=== PATIENT | male | born 1940 | race Caucasian/White ===

== ENCOUNTER 2017-12-04 11:08 | Outpatient (CLI) | payer OTHER, SELFPAY ==
[2017-12-04 13:38] LABS: Hemoglobin A1C 6.4 % (4.5-6.2)
== END 2017-12-04 11:28 ==
PROVIDERS: PCP Family Medicine; Visit Provider Family Medicine
DX: E11.9 Type 2 diabetes mellitus without complications (principal); I10 Essential (primary) hypertension
CPT/HCPCS: 36415; 83036

== ENCOUNTER 2018-06-17 02:03 | Outpatient (CLI) | payer OTHER, SELFPAY ==
[2018-06-17 11:22] LABS: Anion Gap 7.8 mmol/L (3-11); BUN 17 mg/dL (7-18); CO2 30.2 mmol/L (21.0-32.0); CREATININE 1.05 mg/dL (0.70-1.30); Calcium 9.1 mg/dL (8.5-10.1); Chloride 103 mmol/L (98-107); Cholesterol 133 mg/dL (50-200); Glucose 161 mg/dL (70-100); HDL Cholesterol 33 mg/dL (40-60); LDL CHOLESTEROL 79 mg/dL (<100); Potassium 4.1 mmol/L (3.5-5.1); Sodium 141 mmol/L (136-145); Triglyceride 94 mg/dL (30-150)
[2018-06-17 11:29] LABS: Hemoglobin A1C 6.5 % (4.5-6.2)
== END 2018-06-17 02:23 ==
PROVIDERS: PCP Family Medicine; Visit Provider Family Medicine
DX: E78.5 Hyperlipidemia, unspecified (principal); E11.9 Type 2 diabetes mellitus without complications; I10 Essential (primary) hypertension
CPT/HCPCS: 36415; 80048; 80061; 83721; 83036

== ENCOUNTER 2019-12-18 09:37 | Outpatient (CLI) | payer OTHER, SELFPAY ==
[2019-12-18 12:32] LABS: Hemoglobin A1C 6.6 % (<5.7)
[2019-12-18 12:38] LABS: ALT 27 U/L (16-63); AST 15 U/L (15-37); Albumin 4.2 g/dL (3.4-5.0); Alkaline Phosphatase 100 U/L (46-116); Anion Gap 10.3 mmol/L (3-11); BUN 22 mg/dL (7-18); Bilirubin, Total 0.7 mg/dL (0.2-1.0); CO2 28.7 mmol/L (21.0-32.0); CREATININE 1.13 mg/dL (0.70-1.30); Calcium 8.9 mg/dL (8.5-10.1); Chloride 103 mmol/L (98-107); Glucose 130 mg/dL (74-106); Potassium 4.2 mmol/L (3.5-5.1); Sodium 142 mmol/L (136-145)
== END 2019-12-18 09:57 ==
DX: E11.9 Type 2 diabetes mellitus without complications (principal); I10 Essential (primary) hypertension
CPT/HCPCS: 36415; 80053; 83036

== ENCOUNTER 2020-04-27 13:32 | Outpatient (REF) | payer OTHER, SELFPAY | END 2020-04-27 13:33 | disposition home or self-care (01) | LOC: NCHCN 13:32 | PROVIDERS: Visit Provider Nurse Practitioner Family | DX: J02.9 Acute pharyngitis, unspecified (principal) | CPT/HCPCS: 87070 ==

== ENCOUNTER 2021-01-04 16:08 | Outpatient (REF) | payer MEDICARE, SELFPAY ==
[2021-01-04 20:52] LABS: COMMENT (LAB VIEW ONLY) 80.79 mg/dL; Microalb ug/mg Crea 26.6 ug/mg Cr
[2021-01-04 21:03] LABS: ALT 29 U/L (16-63); AST 15 U/L (15-37); Albumin 3.9 g/dL (3.4-5.0); Alkaline Phosphatase 114 U/L (46-116); Anion Gap 6.7 mmol/L (3-11); BUN 18 mg/dL (7-18); Bilirubin, Total 0.5 mg/dL (0.2-1.0); CO2 31.3 mmol/L (21.0-32.0); Calcium 8.7 mg/dL (8.5-10.1); Calculated LDL 91 mg/dL (<100); Chloride 104 mmol/L (98-107); Cholesterol 142 mg/dL (<200); Glucose 113 mg/dL (74-106); HDL Cholesterol 33 mg/dL (40-60); Sodium 142 mmol/L (136-145); TSH (W/Ref FT4) 1.58 uIU/mL (0.36-3.74); Total Protein 6.7 g/dL (6.4-8.2); Triglyceride 94 mg/dL (<150)
== END 2021-01-04 16:09 | disposition home or self-care (01) ==
LOC: LBN 16:08
PROVIDERS: Visit Provider Family Medicine
DX: E11.9 Type 2 diabetes mellitus without complications (principal); I10 Essential (primary) hypertension; E78.5 Hyperlipidemia, unspecified
CPT/HCPCS: 80053; 80061; 82043; 82570; 84443

== ENCOUNTER 2021-02-28 10:29 | Outpatient (CLI) | payer MEDICARE, SELFPAY ==
--- NOTE | 2021-02-28 10:15 | DI.RAD_ITS ---
Exam(s) XR SHOULDER RT COMPLETE 2+V EXAM: XR SHOULDER RT COMPLETE 2+V CLINICAL HISTORY: right shoulder pain, M25.511. TECHNIQUE: 2D digital imaging was performed. COMPARISON: No exams were available for comparison FINDINGS: BONES: No acute fracture is present. No bony destructive lesion is seen. JOINTS: No dislocation present. Prominent spurring is seen at the AC joint. Spurring is also noted at the tip of the acromion. Spurring at the margin of the glenoid. SOFT TISSUE: 2 tiny calcifications near the greater tuberosity could indicate mild calcific tendinosi s. Sternal wires and pacemaker leads noted. IMPRESSION: Degenerative changes AC joint and glenohumeral joint. Calcific tendinosis. DATA REPOSITORY: RADIATION DOSE DELIVERED:
== END 2021-02-28 10:49 ==
PROVIDERS: Visit Provider Physician Assistant
DX: M25.511 Pain in right shoulder (principal); M75.31 Calcific tendinitis of right shoulder; M19.011 Primary osteoarthritis, right shoulder
CPT/HCPCS: 73030

== ENCOUNTER 2021-10-14 01:42 | Outpatient (CLI) | payer MEDICARE, SELFPAY ==
[2021-10-14 12:38] LABS: Hemoglobin A1C 7.1 % (<5.7)
[2021-10-14 12:45] LABS: TSH (W/Ref FT4) 1.61 uIU/mL (0.36-3.74)
== END 2021-10-14 01:43 | disposition home or self-care (01) ==
LOC: LOS 01:42
DX: E11.9 Type 2 diabetes mellitus without complications (principal); R63.4 Abnormal weight loss
CPT/HCPCS: 36415; 83036; 84443

== ENCOUNTER 2022-01-06 01:46 | Outpatient (CLI) | payer MEDICARE, SELFPAY ==
[2022-01-06 11:44] LABS: Anion Gap 6.6 mmol/L (3-11); BUN 22 mg/dL (7-18); CO2 30.4 mmol/L (21.0-32.0); CREATININE 1.2 mg/dL (0.70-1.30); Calcium 9.5 mg/dL (8.5-10.1); Chloride 101 mmol/L (98-107); Estimated GFR 61.52 (mL/min/1.73m2); Glucose 180 mg/dL (74-106); Potassium 3.9 mmol/L (3.5-5.1); Sodium 138 mmol/L (136-145)
[2022-01-06 14:24] LABS: COMMENT (LAB VIEW ONLY) 128.66 mg/dL; Microalb ug/mg Crea 29.9 ug/mg Cr
[2022-01-09 09:52] LABS: Lyme Ab w Rflx to Lyme Confirm Negative (Negative)
[2022-01-10 18:26] LABS: Anaplasma phagocytophilum Negative (Negative); B. miyamotoi PCR Negative (Negative); Babesia divergens/MO-1 Negative (Negative); Babesia duncani Negative (Negative); Babesia microti Negative (Negative); Ehrlichia chaffeensis Negative (Negative); Ehrlichia ewingii/canis Negative (Negative); Ehrlichia muris eauclairensis Negative (Negative)
== END 2022-01-06 01:47 | disposition home or self-care (01) ==
LOC: LBO 01:46
PROVIDERS: Family Medicine; Nurse Practitioner Family; PCP Nurse Practitioner Family; Visit Provider Nurse Practitioner Family
DX: E11.9 Type 2 diabetes mellitus without complications (principal); W57.XXXA Bitten or stung by nonvenomous insect and other nonvenomous arthropods, initial encounter
CPT/HCPCS: 36415; 80048; 87798; 82043; 82570; 86618

== ENCOUNTER 2022-02-10 16:16 | Outpatient (REF) | payer MEDICARE, SELFPAY | END 2022-02-10 16:17 | disposition home or self-care (01) | LOC: LBN 16:16 | PROVIDERS: PCP Nurse Practitioner Family; Visit Provider Nurse Practitioner Family | DX: R30.0 Dysuria (principal) | CPT/HCPCS: 87086 ==

== ENCOUNTER → 2022-03-06 14:32 | Outpatient (BNVA) | payer MEDICARE, SELFPAY | PROVIDERS: PCP Nurse Practitioner Family; Referring Provider Nurse Practitioner Family; Visit Provider Student in an Organized Health Care Education/Training Program | DX: M79.5 Residual foreign body in soft tissue (principal) | CPT/HCPCS: 10120; 99203 ==

== ENCOUNTER 2022-05-08 12:04 | Outpatient (CLI) | payer MEDICARE, SELFPAY ==
--- NOTE | 2022-05-08 12:00 | DI.RAD_ITS ---
Exam(s) XR HIP LT COMPLETE AP PELVIS EXAM: XR HIP LT COMPLETE AP PELVIS INDICATION: increased pain M54.5 BACK PAIN M48.061 SPINAL STENOSIS M25.552 PAIN LT HIP. TECHNIQUE: 2D digital imaging was performed. Two views. FINDINGS: The hip joint spaces are well maintained. There is minimal bilateral hip acetabular spurring. Mini mal degenerative changes present at the SI joints. Pubic symphysis unremarkable. IMPRESSION: Mild degenerative changes. DATA REPOSITORY: RADIATION DOSE DELIVERED:
--- NOTE | 2022-05-08 12:00 | DI.RAD_ITS ---
Exam(s) XR LUMBAR SPINE COMPLETE EXAM: XR LUMBAR SPINE COMPLETE CLINICAL HISTORY: increased pain M25.552 PAIN LT HIP M54.5 LOW BACK PAIN. TECHNIQUE: 2D digital imaging was performed. Five views. COMPARISON: No exams were available for comparison FINDINGS: BONES: No fracture or destructive lesion. Vertebral body heights are maintained. Facet degenerative changes greater L4-5 and L5-S1. No spondylolysis . DISKS: Mild narrowing of the L 3 4 disc. Moderate narrowing of the L5-S1 disc. ALIGNMENT: Lumbar sp inal alignment is within normal limits. SOFT TISSUE: The aorta calcified. No aneurysm visible. Large quantity of stool throughout the colon . No small bowel dilatation. IMPRESSION: Degenerative changes greatest L3-4 and L5-S1. DATA REPOSITORY: RADIATION DOSE DELIVERED:
== END 2022-05-08 12:24 ==
LOC: DI 12:07
PROVIDERS: PCP Nurse Practitioner Family; Visit Provider Nurse Practitioner Family
DX: M25.552 Pain in left hip (principal); M54.59 Other low back pain; M48.061 Spinal stenosis, lumbar region without neurogenic claudication; M25.852 Other specified joint disorders, left hip; M51.37 Other intervertebral disc degeneration, lumbosacral region; M47.817 Spondylosis without myelopathy or radiculopathy, lumbosacral region
CPT/HCPCS: 72110; 73502

== ENCOUNTER → 2022-06-02 09:18 | Outpatient (BNVA) | payer MEDICARE, SELFPAY | PROVIDERS: PCP Nurse Practitioner Family; Referring Provider Nurse Practitioner Family; Visit Provider Physician Assistant | DX: M70.62 Trochanteric bursitis, left hip (principal) | CPT/HCPCS: 20610; J1040 ==

== ENCOUNTER → 2022-08-10 11:11 | Outpatient (BNVA) | payer MEDICARE, SELFPAY | PROVIDERS: PCP Nurse Practitioner Family; Referring Provider Nurse Practitioner Family; Visit Provider Student in an Organized Health Care Education/Training Program | DX: M70.62 Trochanteric bursitis, left hip (principal) | CPT/HCPCS: 99213 ==

== ENCOUNTER → 2022-12-15 09:51 | Outpatient (CLI) | payer MEDICARE, SELFPAY ==
--- NOTE | 2022-12-15 09:45 | DI.RAD_ITS ---
Exam(s) XR LUMBAR SPINE COMPLETE EXAM: XR LUMBAR SPINE COMPLETE CLINICAL HISTORY: left hip pain, M25.552. TECHNIQUE: 2D digital imaging was performed. Five views. COMPARISON: CR XR LUMBAR SPINE COMPLETE from 05/08/2022 FINDINGS: BONES: No fracture or destructive lesion. Vertebral body heights are maintained. Small endplate oste ophytes throughout. Facet hypertrophy identified greater in lower lumbar levels.. DISKS: Stable mild narrowing of the L3-4 disc space. Stable narrowing of the L5-S1 disc space. ALIGNMENT: Lumbar spinal alignment is within normal limits. SOFT TISSUE: Aorta is calcified but normal in diameter. IMPRESSION: Stable degenerative changes of the lumbar spine. DATA REPOSITORY: RADIATION DOSE DELIVERED:
--- NOTE | 2022-12-15 09:45 | DI.RAD_ITS ---
Exam(s) XR HIP LT COMPLETE AP PELVIS EXAM: XR HIP LT COMPLETE AP PELVIS CLINICAL HISTORY: left hip pain, M25.552. TECHNIQUE: 2D digital imaging was performed. Two views. COMPARISON: CR XR HIP LT COMPLETE AP PELVIS from 05/08/2022 FINDINGS: BONES: No acute fracture is present. No bony destructive lesion is seen. JOINTS: No dislocation present. Hip joint spaces are maintained. Minimal acetabular spurring. Stab le from prior. Minimal degenerative changes at the SI joints. SOFT TISSUE: Normal. IMPRESSION: Minimal degenerative changes. DATA REPOSITORY: RADIATION DOSE DELIVERED:
== END ==
PROVIDERS: PCP Nurse Practitioner Family; Visit Provider Physician Assistant
DX: M25.552 Pain in left hip (principal)
CPT/HCPCS: 72110; 73502

== ENCOUNTER → 2022-12-21 13:49 | Outpatient (BNVA) | payer MEDICARE, SELFPAY | PROVIDERS: PCP Nurse Practitioner Family; Referring Provider Nurse Practitioner Family | DX: M70.62 Trochanteric bursitis, left hip (principal) | CPT/HCPCS: 99213 ==

== ENCOUNTER 2022-12-22 11:17 | Day surgery (SDC) | payer MEDICARE, SELFPAY ==
--- NOTE | 2022-12-22 06:48 | HPE_ITS ---
Assessment and Plan Assessment and plan (1) Posterior subcapsular age-related cataract, right eye: Status: Acute Assessment and plan: Assessment: Visually significant cataract of the right thigh. Plan: Cataract extraction with lens implantation of the right eye. (2) Nuclear age-related cataract, right eye: Status: Acute Assessment and plan: Assessment: Visually significant cataract of the right thigh. Plan: Cataract extraction with lens implantation of the right eye. (3) Primary open angle glaucoma (POAG) of right eye, mild stage: Status: Acute Assessment and plan: Assessment: Primary open-angle glaucoma of the right eye, mild stage, controlled on 1 medication. Plan: Minimally invasive glaucoma surgery, right eye, at the time of cataract surgery. History of Present Illness History of Present Illness Chief Complaint: Progressive decreased vision, both eyes Narrative: The patient is an 82-year-old male with history of primary open-angle glaucoma in both eyes, mild stage, controlled on 1 medication. He notes progressive decreased vision at both distance and near. He has difficulty reading fine print and significant glare with headlights at night. On examination he was noted to have dense bilateral cataracts. The option of cataract surgery was offered to the patient and he wished to proceed. In addition, he desired to proceed with minimally invasive glaucoma surgery at the time of cataract surgery and attempt to reduce his dependence on topical medication and improved intrao cular pressure control. Review of Systems All systems reviewed & are unremarkable except as noted in HPI and below PFSH All Active Problems Primary open angle glaucoma (POAG) of right eye, mild stage (Acute) Posterior subcapsular age-related cataract, right eye (Acute) Nuclear age-related cataract, right eye (Acute) Trochanteric bursitis, left hip (Acute) DEPO MEDROL 06/02/2022 Pacemaker (Acute) Left hip pain (Acute) Foreign body (FB) in soft tissue (Acute) Sliver (Acute) base of right thumb - pressure treated wood, been there a couple of weeks, very tender Weakness (Acute) Post-nasal drip (Acute) Encounter for annual physical exam (Acute) Concern about skin disease without diagnosis (Acute) Depressive disorder (Acute 01/11/03) Diverticulosis of colon without diverticulitis (Acute) Family history of diabetes mellitus (Acute) History of esophagogastroduodenoscopy (Acute) Peptic reflux disease (Acute) Polyp of colon (Acute) Problem with sexual function (Acute) Status post rotator cuff repair (Acute) Spinal stenosis of lumbar region at multiple levels (Acute 08/18/14) Sensory hearing loss, bilateral (Acute 08/18/13) Osteoarthritis (Acute) right hip Low back pain (Acute) Impotence of organic origin (Acute) Hyperlipidemia (Acute) Hearing loss (Acute) Gastroesophageal reflux disease (Acute 10/31/12) Essential hypertension (Acute 10/30/12) Disorder of esophagus (Acute) presbyesophagus Diabetes mellitus (Acute 04/30/15) Coronary artery disease involving [place] coronary artery of [place] heart without angina pectoris (Acute 03/17/16) 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 Ulcer in throat Rotator Cuff Repair (~01/2001) left EGD - MAC 02/09/14 Family History Mother , 91 Diabetes Essential hypertension Heart disease Hyperlipidemia Stroke Father , 82 Parkinson disease Heart disease Sister Hyperlipidemia Brother , 54 Heart disease Brother , 70 No problems noted. Brother Diabetes Heart disease Brother Diabetes Heart disease Sister Diabetes Heart disease Maternal Grandfather No problems noted. Paternal Grandfather No problems noted. Maternal Grandmother No problems noted. Paternal Grandmother No problems noted. Social History Smoking/Tobacco Use Status: Former Tobacco Use Quit Date: 02/12/1967 Tobacco: How many years used: 5 Second Hand Exposure: Yes Smoking risk assessment performed?: Yes Alcohol Intake: never Drug use: Never Substance use type: does not use Counseling given: No Counseling provided: none Caregiver/Support person: No Household members: spouse Housing: house Communication Needs: Hard of Hearing and Corrective Lenses Do you need help understanding health information?: Rarely Pets and animals: Yes Pets and animals: horse(s) Sexually active: No Do you think of yourself as: straight/heterosexual Current gender identity: male What is your relationship status?: How often do you talk on the phone with friends or family?: three or more times per week How often do you get together with friends or relatives?: three or more times per week How often do you attend episcopalian or presybeterian services?: 1-3 times per year Do you belong to any clubs or organized social groups?: yes Panel score (0-1 are the most socially isolated patients): 3 What type of physical activity do you participate in: none Frequency: does not exercise Rosalba/Confucianist: Moravian Special rosalba needs: No Seatbelt use: always Helmet use: Yes Helmet use: sometimes Drive intox or ride w/intox local company hazmat driver: No Additional Social history: unable to assess Issue Allergies and Home Medications Allergies Allergy/AdvReac Type Severity Reaction Status Date / Time No Known Allergies Allergy Verified 12/22/22 11:40 Home Medications Medication Instructions Recorded Confirmed Type Aspirin 1 tab PO DAILY 05/13/12 12/22/22 History multivitamin with minerals (One 1 tab PO DAILY 05/13/12 12/22/22 History Daily Complete tablet) acyclovir 400 mg tablet 400 mg PO Q4H PRN cold sores #5 09/18/19 12/22/22 Rx tabs blood-glucose meter (Contour Next #1 ea 01/12/22 12/21/22 Rx EZ Meter kit) lancets (Accu-Chek Softclix #200 ea 01/13/22 12/21/22 Rx Lancets) blood sugar diagnostic (Accu-Chek 05/08/22 12/21/22 History SmartView Test Strips) sertraline 50 mg tablet See Rx Instructions .Route 06/30/22 12/22/22 Rx .COMPLEX #90 tabs omeprazole 40 mg capsule,delayed See Rx Instructions .Route 08/09/22 12/22/22 Rx release .COMPLEX #90 caps atorvastatin 40 mg tablet See Rx Instructions .Route 08/16/22 12/22/22 Rx .COMPLEX #90 tabs hydrochlorothiazide 25 mg tablet See Rx Instructions .Route 08/23/22 12/22/22 Rx .COMPLEX #90 tabs metoprolol succinate 25 mg 25 mg PO DAILY #90 tabs 09/06/22 12/22/22 Rx tablet,extended release 24 hr metformin 500 mg tablet,extended 1,000 mg (2 x 500 mg) PO DAILY 09/12/22 12/22/22 Rx release 24hr #180 tabs famotidine 20 mg tablet See Rx Instructions .Route 11/03/22 12/22/22 Rx .COMPLEX #90 tabs Exam Eyes Other: Most recent ocular examination is significant for corrected visual acuity of 20/30 right eye, 20/40 left eye. Extraocular motility is normal. Intraocular pressure is 20 in each eye. Slit-lamp examination is significant for dense brunescent bilateral nuclear cataracts with mild posterior subcapsular cataract. Disc cupping is 0.6 OU with normal vessels, macula, peripheral retina and vitreous. There is a choroidal nevus present in the right thigh. Resp Auscultation: clear to auscultation bilaterally Cardio Rate: regular rate Rhythm: regular rhythm
[2022-12-22 11:23] VITALS: BP 147/96; PULSE 63; RESP 16; TEMP 36.2; O2SAT 98
[2022-12-22] MEDS: Tropicam./Phenyleph. (1/2.5%) 5 ML BTL OD ×3 (11:38→11:49)
--- NOTE | 2022-12-22 11:54 | ANES.PREOP_ITS ---
General Info Date of Service Date Performed: 12/22/22 Height: 5 ft 9 in Weight: 67 kg Body Mass Index (BMI): 21.8 Surgical Procedure: Operation Date: 12/22/22 14:40 Proposed Procedure Side Surgeon p Cataract Extraction with IOL Implant w/Glaucoma Stent Right Jeffrey Monge MD Meds Allergies and Home Medications Allergies Allergy/AdvReac Type Severity Reaction Status Date / Time No Known Allergies Allergy Verified 12/22/22 11:40 Home Medication Medication Instructions Recorded Aspirin 1 tab PO DAILY 05/13/12 multivitamin with minerals (One 1 tab PO DAILY 05/13/12 Daily Complete tablet) acyclovir 400 mg tablet 400 mg PO Q4H PRN cold sores #5 09/18/19 tabs blood-glucose meter (Contour Next #1 ea 01/12/22 EZ Meter kit) lancets (Accu-Chek Softclix #200 ea 01/13/22 Lancets) blood sugar diagnostic (Accu-Chek 05/08/22 SmartView Test Strips) sertraline 50 mg tablet See Rx Instructions .Route 06/30/22 .COMPLEX #90 tabs omeprazole 40 mg capsule,delayed See Rx Instructions .Route 08/09/22 release .COMPLEX #90 caps atorvastatin 40 mg tablet See Rx Instructions .Route 08/16/22 .COMPLEX #90 tabs hydrochlorothiazide 25 mg tablet See Rx Instructions .Route 08/23/22 .COMPLEX #90 tabs metoprolol succinate 25 mg 25 mg PO DAILY #90 tabs 09/06/22 tablet,extended release 24 hr metformin 500 mg tablet,extended 1,000 mg (2 x 500 mg) PO DAILY 09/12/22 release 24hr #180 tabs famotidine 20 mg tablet See Rx Instructions .Route 11/03/22 .COMPLEX #90 tabs Current Visit Medications: Current Medications Generic Name Dose Route Start Last Admin Trade Name Freq PRN Reason Stop Dose Admin Acetaminophen 1,000 mg 12/22/22 06:00 Acetaminophen 500 Mg Tab PO 01/21/23 05:59 Q4H PRN PRN Balanced Salt Solution 500 ml 12/22/22 06:00 Balanced Salt Soln.-Plus 500 Ml Bag OP 01/21/23 05:59 DIRECTED DANIA Miscellaneous Medication 0 ml 12/22/22 06:00 Prednisolone 1%, Moxifloxacin 0.5%, Nepafenac 0.1% 5ml Btl OD 01/21/23 05:59 DIRECTED DANIA Miscellaneous Medication 0 ml 12/22/22 06:00 12/22/22 11:49 Tropicam./Phenyleph. (1/2.5%) 5 Ml Btl OD 01/21/23 05:59 1 drp DIRECTED DANIA Administration Tetracaine HCl 0 ml 12/22/22 06:00 Tetracaine 0.5% 4 Ml Btl OD 01/21/23 05:59 DIRECTED DANIA PFSH Active Problems Active Problems: Problem Status Onset Code Primary open angle glaucoma (POAG) of right eye, mild stage H40.1111 Posterior subcapsular age-related cataract, right eye H25.041 Nuclear age-related cataract, right eye H25.11 Trochanteric bursitis, left hip M70.62 Pacemaker Z95.0 Left hip pain M25.552 Foreign body (FB) in soft tissue M79.5 Sliver T14.8XXA Weakness R53.1 Post-nasal drip R09.82 Encounter for annual physical exam Z00.00 Concern about skin disease without diagnosis Z71.1 Depressive disorder 01/11/03 F32.9 Diverticulosis of colon without diverticulitis K57.30 Family history of diabetes mellitus Z83.3 History of esophagogastroduodenoscopy Z98.890 Peptic reflux disease K21.9 Polyp of colon K63.5 Problem with sexual function F52.9 Status post rotator cuff repair Z98.890 Spinal stenosis of lumbar region at multiple levels 08/18/14 M48.061 Sensory hearing loss, bilateral 08/18/13 H90.3 Osteoarthritis M19.90 Low back pain M54.5 Impotence of organic origin N52.9 Hyperlipidemia E78.5 Hearing loss H91.90 Gastroesophageal reflux disease 10/31/12 K21.9 Essential hypertension 10/30/12 I10 Disorder of esophagus K22.9 Diabetes mellitus 04/30/15 E11.9 Coronary artery disease involving [place] coronary artery of [place] heart without angina pectoris 03/17/16 I25.10 Medical History Medical History Bradycardia (10/24/16) Rate in 30's at night Acute diffuse otitis externa of right ear (12/04/16) Hypertension GERD (gastroesophageal reflux disease) Osteoarthritis Hyperlipidemia Hearing loss Lumbago History of Helicobacter pylori infection Surgical History Surgical History throat surgery ? Ulcer in throat Rotator Cuff Repair (~01/2001) left EGD - MAC 02/09/14 Tobacco Smoking/Tobacco Use Status: Former Tobacco Use Passive smoking exposure: Yes Second hand exposure: Yes Alcohol Alcohol Intake: never Substance Use Substance use: Never Substance use type: does not use Counseling provided: none Vital Signs and Lab Results Vital Signs Most Recent Vital Signs in EMR: Most Recent Vital Signs Temp Pulse Resp BP Pulse Ox 36.2 C L 63 16 147/96 H 98 12/22/22 11:23 12/22/22 11:23 12/22/22 11:23 12/22/22 11:23 12/22/22 11:23 Point of Care Results Point of Care Results: Finger Stick Blood Glucose 189 12/22/22 11:39 Lab Results Blood Type / Crossmatch: No Data to Display Complete Blood Count: No Data to Display Complete Metabolic Panel: No Data to Display Liver Function Panel: No Data to Display Coagulation Panel: No Data to Display Cardiac Panel: No Data to Display Arterial Blood Gas: No Data to Display Venous Blood Gas: No Data to Display Pancreas Panel: No Data to Display Thyroid Panel: No Data to Display Infectious Disease: No Data to Display Blood Cultures: No Data to Display Toxicology Panel: No Data to Display Anesthesia Assessment and Plan Anesthesia History Personal History: No History of Anesthesia Complications Family History: No Family History of Anesthesia Complications Exercise Tolerance Exercise Tolerance: Metabolic Equivalents>4 Pertinent Negatives Pertinent Negatives: No Symptoms of GERD Cardiac & Pulmonary Exam Cardiac Exam: Normal S1/S2 Heart Sounds Pulmonary Exam: Clear Bilateral Breath Sounds Implantable Cardiac Device Does patient have a Pacemaker or an ICD?: Yes Device Beeswax Bleacher:: 79 Group Reason for Placement:: Bradycardia Date of Last Device Interrogation:: 12/04/22 Airway Exam Known Difficult Airway: No Mallampati Class: 2 Mouth Opening: Normal (> 3cm) Thyromental Distance: Greater than 3 cm Neck Range of Motion: Full ROM Neck Circumference: Normal Teeth Condition: Normal Dentition ASA Classification ASA Score: ASA 2 Emergency Case?: No NPO Status NPO Status: NPO Clears >2 hours, Solids >8 hours Anesthesia Plan Resuscitation Status: Full Code Anesthesia Technique: MAC Anesthesia Airway Planned: Natural Airway Monitors Used: Standard Monitors
[2022-12-22 11:55] VITALS: BMI 21.8
== END 2022-12-22 11:18 | disposition home or self-care (01) ==
LOC: SUR 11:18
PROVIDERS: PCP Nurse Practitioner Family; Visit Provider Ophthalmology
DX: H25.041 Posterior subcapsular polar age-related cataract, right eye (principal); Z53.09 Procedure and treatment not carried out because of other contraindication
CPT/HCPCS: 00123

== ENCOUNTER → 2022-12-27 14:07 | Outpatient (BNVA) | payer MEDICARE, SELFPAY | PROVIDERS: PCP Nurse Practitioner Family; Referring Provider Nurse Practitioner Family; Visit Provider Student in an Organized Health Care Education/Training Program | DX: M70.62 Trochanteric bursitis, left hip (principal); M48.061 Spinal stenosis, lumbar region without neurogenic claudication; M54.16 Radiculopathy, lumbar region; E11.9 Type 2 diabetes mellitus without complications; I25.10 Atherosclerotic heart disease of native coronary artery without angina pectoris | CPT/HCPCS: 99215 ==

== ENCOUNTER 2023-01-18 14:32 | Outpatient (CLI) | payer MEDICARE, SELFPAY ==
--- NOTE | 2023-01-18 11:30 | DI.RAD_ITS ---
Exam(s) XR FEMUR LT EXAM: XR FEMUR LT CLINICAL HISTORY: LEFT HIP PAIN. TECHNIQUE: 2D digital imaging was performed. Three views. COMPARISON: 13 December 2015 pelvis and left hip FINDINGS: BONES: No acute fracture is present. No bony destructive lesion is seen. Cyst stable small excrescen ce at the lateral aspect of the proximal femoral shaft, unchanged from 2016. JOINTS: No dislocation present. Hip joint space is maintained. Mild acetabular spurring. SOFT TISSUE: Mild vascular calcifications. IMPRESSION: No acute abnormality DATA REPOSITORY: RADIATION DOSE DELIVERED:
== END 2023-01-18 14:33 | disposition home or self-care (01) ==
LOC: DIORS 14:32
PROVIDERS: PCP Nurse Practitioner Family; Referring Provider Nurse Practitioner Family
DX: M70.62 Trochanteric bursitis, left hip
CPT/HCPCS: 20610; 73552; J1040

== ENCOUNTER 2023-01-19 03:25 | Outpatient (CLI) | payer MEDICARE, SELFPAY ==
[2023-01-19 12:38] LABS: Anion Gap 6.3 mmol/L (3-11); BUN 27 mg/dL (7-18); CO2 29.7 mmol/L (21.0-32.0); CREATININE 1.1 mg/dL (0.70-1.30); Calcium 9.5 mg/dL (8.5-10.1); Chloride 105 mmol/L (98-107); Estimated GFR 67.86 (mL/min/1.73m2); Glucose 208 mg/dL (74-106); Potassium 4.5 mmol/L (3.5-5.1); Sodium 141 mmol/L (136-145)
== END 2023-01-19 03:26 | disposition home or self-care (01) ==
PROVIDERS: PCP Nurse Practitioner Family; Visit Provider Nurse Practitioner Family
DX: E11.9 Type 2 diabetes mellitus without complications (principal)
CPT/HCPCS: 36415; 80048

== ENCOUNTER → 2023-03-06 03:01 | Outpatient (CLI) | payer MEDICARE, SELFPAY ==
--- NOTE | 2023-03-06 12:30 | DI.US_ITS ---
APPROVED REPORT EXAM: Comprehensive 2D, Doppler, and color-flow Echocardiogram Patient Location: Out-Patient Party Plan Salesperson: Javi Benoit RDCS (AE) Indications: CAD, preop, pacemaker Conclusion 1. Mildly dilated LA, other chambers normal sizes. 2. Mild concentric LVH with normal systolic function, EF 65%. Grade 1 diastolic dysfunction.Normal RV function. Device lead in right heart 3. Aortic sclerosis without stenosis. Mild AI, mild to moderate MR,mild TR without phtn. 4. Trace pericardial effusion. Wall motion Left Ventricle The left ventricle is normal size. The left ventricular systolic function is normal. The left ventric ular ejection fraction is within the normal range. There is normal left ventricular wall thickness. T here is normal LV segmental wall motion. There is no ventricular septal defect visualized. LVEF is 60 -65%. Right Ventricle The right ventricle is normal size. The right ventricular systolic function is normal. Pacemaker lead is present in the right ventricle. Atria The left atrium size is normal. The right atrium size is normal. The interatrial septum is intact wit h no evidence for an atrial septal defect. Aortic Valve The Aortic valve is mildly sclerotic. Aortic valve is trileaflet. There is no aortic valvular stenosi s. Trace aortic regurgitation. Mitral Valve The mitral valve is normal in structure. No evidence of mitral valve stenosis. Moderate mitral regurg itation. Tricuspid Valve The tricuspid valve is normal in structure. There is no tricuspid valve stenosis. Mild tricuspid regu rgitation. The RVSP is 27.6 mmHg. Pulmonic Valve The pulmonary valve is normal in structure. There is no pulmonic valvular stenosis. Mild pulmonic reg urgitation. Great Vessels The aortic root is normal in size. The ascending aorta is mildly dilated. Aortic arch is normal in ca liber. IVC is normal in size and collapses >50% with inspiration. Pericardium There is no pericardial effusion. 2D Dimensions IVSD d PLAX 1.15 cm M: 0.6-1.2 Ao Root d 3.46 cm M: 3.1 - 3.7 LVPW d PLAX 1.12 cm M: 0.6 - 1.2 Ao Asc Diam d 3.78 cm M: 2.6 - 3.4 LVID d PLAX 4.20 cm M: 4.2 - 5.8 LVDs 2.75 cm M: 2.5 - 4.0 LV EF Teichholz 64.2 % FS 34.62 % LV EDV (Teich) 78.5 mL LV ESV (Teich) 28.1 mL Stroke Vol Index (Teich) 27.54 Auto EF LV EDV A4C 123.4 mL LV EDV A2C 144.1 mL LV EDV BP 134.4 mL LV ESV A4C 48.2 mL LV ESV A2C 53.5 mL LV ESV BP 51.0 mL LVEF(%) A4C 61.0 % LVEF(%) A2C 62.9 % LVEF(%) BP 62.0 % LV SV A4C 75.2 ml LV SV A2C 90.6 ml LV SV BP 83.3 ml LV CO A4C 4.5 L/min LV CO A2C 5.1 L/min LV CO BP 4.8 L/min HR A4C 60.00 BPM HR A2C 56.08 BPM LV EDV Index (BP) LA Volume LA Length A4C 5.0 cm LA Length A2C LA Area A4C s 14.87 cm2 LA Area A2C s LA Vol A4C A-L 37.85 mL LA Vol A2C A-L LA Vol Biplane A-L LA Vol A4C MOD 35.3 mL LA Vol A2C MOD LA Vol BP MOD RA Volume RA Area A4C 9.1 cm2 RA ESV A4C (A-L) 16.4mL RA Vol/BSA A4C A-L RA Length A4C 4.3 cm RA ESV A4C (MOD) 16.2mL LV Diastology MV E' medial 0.051 (>0.07 m/s) MV E Vmax 0.55 (0.4-1.3 m/s) MV E/E' MED 10.82 (<14) MV A Vmax 0.85 (0.4-1.3 m/s) MV E' lateral 0.087 (>0.1 m/s) E/A Ratio 0.6 MV E/E' LAT 6.28 (<14) MV E' Average 0.069 m/s MV E/E'(average) 7.95 Aortic Valve AoV Vmax 1.37 m/s LVOT Vmax 0.96 m/s AoV Peak Grad 38.1 mmHg LVOT Peak Grad 3.7 mmHg AoV Area (Vmax) 1.77 cm2 LVOT VTI 0.200 m AoV VTI 0.284 m LVOT Mean Grad 1.7 mmHg AoV Mean Ck. 0.92 m/s LVOT SV 50.20 mL AoV Mean Grad 3.9 mmHg LVOT Diam s 1.75 cm AoV Area (VTI) 1.77 cm2 AV Regurg Peak Gr. 68.65 mmHg Velocity Ratio 0.70 AR Decel [place] 1.8m/sec2 AR DT 2254 msec AR PHT 654 msec AR Vmax 4.14 m/s Mitral Valve MV DT 236 (160-240 msec) MR Vmax 4.85 m/s MV Vmax TIPS 0.81 m/s MR VTI 1.462 m MV Mean Grad 0.8 (<2mmHg) MR Peak Grad 94.0 mmHg MV VTI 0.293 m MR Mean Grad 61.7 mmHg MR PISA Radius 0.47 cm MR Aliasing Velocity 0.30 m/s Pulmonary Valve PV Vmax 0.93 (0.5-1.5 m/s) RVOT Vmax 0.53 m/s PV Peak Grad 3.5 mmHg RVOT Peak Gr. 1.1 mmHg PV Mean Ck 0.62 m/s RVOT VTI 0.105 m PV Mean Grad 1.8 mmHg RVOT Mean Gr. 0.7 mmHg Tricuspid Valve RA Pressure 3.00 mmHg TR Vmax 2.48 m/s TR Peak Grad 24.6 mmHg RVSP (TR) 27.6 mmHg
== END ==
PROVIDERS: PCP Nurse Practitioner Family; Visit Provider Nurse Practitioner Family
DX: I25.10 Atherosclerotic heart disease of native coronary artery without angina pectoris (principal)
CPT/HCPCS: 93306

== ENCOUNTER → 2023-04-05 13:12 | Outpatient (BNVA) | payer MEDICARE, SELFPAY | PROVIDERS: PCP Nurse Practitioner Family; Referring Provider Nurse Practitioner Family; Visit Provider Student in an Organized Health Care Education/Training Program | DX: M48.061 Spinal stenosis, lumbar region without neurogenic claudication (principal); M54.16 Radiculopathy, lumbar region; M16.12 Unilateral primary osteoarthritis, left hip | CPT/HCPCS: 99214 ==

== ENCOUNTER → 2023-06-26 10:56 | Outpatient (CLI) | payer MEDICARE, SELFPAY ==
--- NOTE | 2023-06-26 10:45 | DI.RAD_ITS ---
Exam(s) XR CHEST 2V PA LATERAL EXAM: XR CHEST 2V PA LATERAL CLINICAL HISTORY: R50.9 fever, sweats. TECHNIQUE: 2D digital imaging was performed. COMPARISON: CR CHEST 2 VIEWS PA,LAT from 05/05/2016 FINDINGS: 2 views: There is a bipolar left subclavian pacemaker in now evident with lead tips in RA and right ventricle. Sternotomy wires again noted. Heart size is normal. The mediastinum is not widened. There is platelike atelectasis in the right lower lobe. Left lung is clear. No pleural effusions. No pulmonary edema. No fractures. Again noted is evidence of previous rotator cuff surgery in the l eft shoulder. IMPRESSION: Sternotomy wires. Bipolar left subclavian pacemaker. Normal heart size. No CHF Subsegmental platelike atelectasis or scarring noted in the right middle and right lower lobes. DATA REPOSITORY: RADIATION DOSE DELIVERED:
[2023-06-26 12:13] LABS: Abs Immature Grans 0.02 10^3/uL (0.0-0.06); Absolute Basophil Count 0.05 10^3/uL (0.0-0.2); Absolute Eosinophil Count 0.42 10^3/uL (0.0-0.7); Absolute Lymphocyte Count 1.22 10^3/uL (1.2-3.4); Absolute Monocyte Count 0.58 10^3/uL (0.1-0.8); Absolute Neutrophil Count 4.44 10^3/uL (1.2-6.7); Basophils % 0.7 %; Eosinophils % 6.2 %; HCT 42.3 % (40.0-50.0); HGB 14.7 g/dL (13.5-17.5); Immature Grans % 0.3 %; Lymphocytes % 18.1 %; MCH 29.3 pg (27.0-33.0); MCHC 34.8 % (32.0-36.0); MCV 84 fL (80-95); MPV 10.8 fL (8.0-11.0); Monocytes % 8.6 %; Neutrophils % 66.1 %; Platelet Count 199 10^3/uL (130-400); RBC 5.02 10^6/uL (4.36-5.78); RDW 12.4 % (11.8-14.1); RDW-SD 38.1 fL; WBC 6.73 10^3/uL (4.4-10.8)
[2023-06-26 12:52] LABS: ALT 26 U/L (16-63); AST 14 U/L (15-37); Albumin 4.4 g/dL (3.4-5.0); Alkaline Phosphatase 112 U/L (46-116); Anion Gap 10.1 mmol/L (3-11); BUN 26 mg/dL (7-18); Bilirubin, Total 0.8 mg/dL (0.2-1.0); CO2 27.9 mmol/L (21.0-32.0); CREATININE 1.1 mg/dL (0.70-1.30); Chloride 105 mmol/L (98-107); Estimated GFR 67.44 (mL/min/1.73m2); Glucose 165 mg/dL (74-106); Potassium 3.7 mmol/L (3.5-5.1); Sodium 143 mmol/L (136-145); TSH (W/Ref FT4) 1.82 uIU/mL (0.36-3.74)
== END ==
PROVIDERS: PCP Nurse Practitioner Family; Visit Provider Nurse Practitioner Family
DX: R91.8 Other nonspecific abnormal finding of lung field (principal); R50.9 Fever, unspecified
CPT/HCPCS: 80053; 71046; 84443; 85025

== ENCOUNTER 2023-07-04 13:30 | Outpatient (REF) | payer MEDICARE, SELFPAY ==
[2023-07-04 13:49] LABS: ALT 24 U/L (16-63); AST 13 U/L (15-37); Alkaline Phosphatase 107 U/L (46-116); BUN 26 mg/dL (7-18); Bilirubin, Total 0.7 mg/dL (0.2-1.0); CREATININE 1.1 mg/dL (0.70-1.30); Calcium 9.2 mg/dL (8.5-10.1); Calculated LDL 93 mg/dL (<100); Chloride 106 mmol/L (98-107); Cholesterol 150 mg/dL (<200); Estimated GFR 67.44 (mL/min/1.73m2); Glucose 214 mg/dL (74-106); HDL Cholesterol 42 mg/dL (40-60); Potassium 3.7 mmol/L (3.5-5.1); Sodium 140 mmol/L (136-145); Total Protein 6.8 g/dL (6.4-8.2); Triglyceride 79 mg/dL (<150)
== END 2023-07-04 13:31 | disposition home or self-care (01) ==
LOC: LBN 13:30
PROVIDERS: PCP Nurse Practitioner Family; Visit Provider Nurse Practitioner Family
DX: E78.5 Hyperlipidemia, unspecified (principal)
CPT/HCPCS: 80053; 80061

== ENCOUNTER 2023-08-30 13:38 | Outpatient (REF) | payer MEDICARE, SELFPAY ==
[2023-08-31 13:18] LABS: Lyme Ab w Rflx to Lyme Confirm Negative (Negative)
[2023-09-02 09:46] LABS: Anaplasma phagocytophilum Negative (Negative); B. miyamotoi PCR Negative (Negative); Babesia divergens/MO-1 Negative (Negative); Babesia duncani Negative (Negative); Babesia microti Negative (Negative); Ehrlichia chaffeensis Negative (Negative); Ehrlichia ewingii/canis Negative (Negative); Ehrlichia muris eauclairensis Negative (Negative)
== END 2023-08-30 13:39 | disposition home or self-care (01) ==
LOC: LBN 13:38
PROVIDERS: PCP Nurse Practitioner Family; Visit Provider Nurse Practitioner Family
DX: T14.8XXA Other injury of unspecified body region, initial encounter (principal); W57.XXXA Bitten or stung by nonvenomous insect and other nonvenomous arthropods, initial encounter
CPT/HCPCS: 87798; 86618

== ENCOUNTER → 2023-09-13 08:20 | Outpatient (BNVA) | payer MEDICARE, SELFPAY | PROVIDERS: PCP Nurse Practitioner Family; Referring Provider Nurse Practitioner Family | DX: M16.12 Unilateral primary osteoarthritis, left hip (principal); M70.62 Trochanteric bursitis, left hip; M48.061 Spinal stenosis, lumbar region without neurogenic claudication; M54.16 Radiculopathy, lumbar region | CPT/HCPCS: 20610; J1010 ==

== ENCOUNTER 2023-10-12 13:11 | Day surgery (SDC) | payer MEDICARE, SELFPAY ==
[2023-10-12 13:35] VITALS: BP 147/98; PULSE 62; RESP 18; TEMP 36.3; O2SAT 97
[2023-10-12] MEDS: Tropicam./Phenyleph. (1/2.5%) 5 ML BTL OD ×3 (13:37→13:48)
--- NOTE | 2023-10-12 14:04 | W.ANESPRE ---
General Info Date of Service Date Performed: 10/12/23 Height: 5 ft 9 in Weight: 69.6 kg Body Mass Index (BMI): 22.6 Surgical Procedure: Operation Date: 10/12/23 15:40 Proposed Procedure Side Surgeon p Cataract Extraction with IOL Implant w/ Glaucoma Stent Right Jeffrey Monge MD Actual Procedure Side Surgeon p Cataract Extraction with IOL Implant w/ Glaucoma Stent Right Jeffrey Monge MD Pre-Op Diagnosis Post-Op Diagnosis CATARACT OD, GLAUCOMA CATARACT OD, GLAUCOMA Meds Allergies and Home Medications Allergies Allergy/AdvReac Type Severity Reaction Status Date / Time No Known Allergies Allergy Verified 10/12/23 13:42 Home Medication ?Medication ?Instructions ?Recorded Aspirin 1 tab PO DAILY 05/13/12 multivitamin with minerals (One 1 tab PO DAILY 05/13/12 Daily Complete tablet) acyclovir 400 mg tablet 400 mg PO Q4H PRN cold sores #5 09/18/19 tabs blood-glucose meter (Contour Next #1 ea 01/12/22 EZ Meter kit) lancets (Accu-Chek Softclix #200 ea 01/13/22 Lancets) blood sugar diagnostic (Accu-Chek 05/08/22 SmartView Test Strips) famotidine 20 mg tablet See Rx Instructions .Route 11/03/22 .COMPLEX #90 tabs metformin 500 mg tablet,extended 500 mg PO DAILY #90 tabs 12/26/22 release 24hr (osmotic) ondansetron HCl 4 mg tablet 4 mg PO Q8H PRN nausea and 01/10/23 vomiting #60 tabs omeprazole 40 mg capsule,delayed See Rx Instructions .Route 03/01/23 release .COMPLEX #90 caps sertraline 50 mg tablet See Rx Instructions .Route 08/06/23 .COMPLEX #90 tabs clotrimazole 1 % topical cream 1 applic topical BID #45 grams 09/12/23 atorvastatin 40 mg tablet See Rx Instructions .Route 09/17/23 .COMPLEX #90 tabs hydrochlorothiazide 25 mg tablet 25 mg PO DAILY #90 tabs 09/17/23 metoprolol succinate 25 mg 25 mg PO DAILY #90 tabs 09/27/23 tablet,extended release 24 hr Current Visit Medications: Current Medications Generic Name Dose Route Start Last Admin Trade Name Freq PRN Reason Stop Dose Admin Acetaminophen 1,000 mg 10/12/23 08:05 Acetaminophen 500 Mg Tab PO 11/11/23 08:04 Q4H PRN PRN Balanced Salt Solution 500 ml 10/13/23 06:00 Balanced Salt Soln.-Plus 500 Ml Bag OP 11/12/23 05:59 DIRECTED [facility] Miscellaneous Medication 0 ml 10/12/23 08:05 Prednisolone 1%, Moxifloxacin 0.5%, Bromfenac 0.09% 5.6ml Btl OD 11/11/23 08:04 DIRECTED [facility] Miscellaneous Medication 0 ml 10/12/23 08:05 10/12/23 13:48 Tropicam./Phenyleph. (1/2.5%) 5 Ml Btl OD 11/11/23 08:04 1 drp DIRECTED [facility] Administration Tetracaine HCl 0 ml 10/12/23 08:05 Tetracaine 0.5% 4 Ml Btl OD 11/11/23 08:04 DIRECTED [facility] PFSH Active Problems Active Problems: Problem Status Onset Code Tick bite Acute W57.XXXA Actinic keratoses Acute L57.0 Osteoarthritis of left hip Acute M16.12 Spinal stenosis of lumbar region with radiculopathy Acute M48.061, M54.16 Primary open angle glaucoma (POAG) of right eye, mild stage Acute H40.1111 Posterior subcapsular age-related cataract, right eye Acute H25.041 Nuclear age-related cataract, right eye Acute H25.11 Trochanteric bursitis, left hip Acute M70.62 Pacemaker Acute Z95.0 Weakness Acute R53.1 Post-nasal drip Acute R09.82 Concern about skin disease without diagnosis Acute Z71.1 Depressive disorder Acute 03 F32.9 Diverticulosis of colon without diverticulitis Acute K57.30 Family history of diabetes mellitus Acute Z83.3 History of esophagogastroduodenoscopy Acute Z98.890 Peptic reflux disease Acute K21.9 Polyp of colon Acute K63.5 Status post rotator cuff repair Acute Z98.890 Sensory hearing loss, bilateral Acute 08/18/14 H90.3 Osteoarthritis Acute M19.90 Impotence of organic origin Acute N52.9 Hyperlipidemia Acute E78.5 Hearing loss Acute H91.90 Gastroesophageal reflux disease Acute 10/31/12 K21.9 Essential hypertension Acute 10/30/12 I10 Disorder of esophagus Acute K22.9 Diabetes mellitus Acute 04/30/15 E11.9 Coronary artery disease involving [place] coronary artery of [place] heart without angina pectoris Acute 03/17/16 I25.10 Medical History Medical History Left hip pain Foreign body (FB) in soft tissue Sliver base of right thumb - pressure treated wood, been there a couple of weeks, very tender Encounter for annual physical exam Problem with sexual function Spinal stenosis of lumbar region at multiple levels (08/18/14) Low back pain Bradycardia (10/24/16) Rate in 30's at night Acute diffuse otitis externa of right ear (12/04/16) Hypertension GERD (gastroesophageal reflux disease) Osteoarthritis Hyperlipidemia Hearing loss Lumbago History of Helicobacter pylori infection Surgical History Surgical History History of permanent cardiac pacemaker placement [facility] History of cataract surgery Hx of CABG 2017 throat surgery ? Ulcer in throat Rotator Cuff Repair (~01/2001) left EGD - MAC 02/09/14 Tobacco Smoking/Tobacco Use Status: Former Tobacco Use Passive smoking exposure: Yes Second hand exposure: Yes Alcohol Alcohol Intake: never Substance Use Substance use: Never Substance use type: does not use Counseling provided: none Vital Signs and Lab Results Vital Signs Most Recent Vital Signs in EMR: Most Recent Vital Signs Temp Pulse Resp BP Pulse Ox 36.3 C L 62 18 147/98 H 97 10/12/23 13:35 10/12/23 13:35 10/12/23 13:35 10/12/23 13:35 10/12/23 13:35 Point of Care Results Point of Care Results: Finger Stick Blood Glucose 129 10/12/23 13:28 Lab Results Blood Type / Crossmatch: No Data to Display Complete Blood Count: No Data to Display Complete Metabolic Panel: Hemoglobin A1c 7.4 % (4.5-5.7) H 09/25/23 09:40 Liver Function Panel: No Data to Display Coagulation Panel: No Data to Display Cardiac Panel: No Data to Display Arterial Blood Gas: No Data to Display Venous Blood Gas: No Data to Display Pancreas Panel: No Data to Display Thyroid Panel: No Data to Display Infectious Disease: No Data to Display Blood Cultures: No Data to Display Toxicology Panel: No Data to Display Anesthesia Assessment and Plan Anesthesia History Personal History: No History of Anesthesia Complications Family History: No Family History of Anesthesia Complications Exercise Tolerance Exercise Tolerance: Metabolic Equivalents>4 Pertinent Negatives Pertinent Negatives: No Symptoms of GERD Cardiac & Pulmonary Exam Cardiac Exam: Normal S1/S2 Heart Sounds Pulmonary Exam: Clear Bilateral Breath Sounds Implantable Cardiac Device Does patient have a Pacemaker or an ICD?: Yes Device Lehr Stripper:: URBANARA Reason for Placement:: Bradycardia Date of Last Device Interrogation:: 09/30/23 Airway Exam Known Difficult Airway: No Mallampati Class: 2 Mouth Opening: Normal (> 3cm) Thyromental Distance: Greater than 3 cm Neck Range of Motion: Full ROM Neck Circumference: Normal Teeth Condition: Normal Dentition ASA Classification ASA Score: ASA 3 Emergency Case?: No NPO Status NPO Status: NPO Clears >2 hours, Solids >8 hours Anesthesia Plan Resuscitation Status: Full Code Anesthesia Technique: MAC Anesthesia Airway Planned: Natural Airway Monitors Used: Standard Monitors
[2023-10-12 14:05] VITALS: BMI 22.6
[2023-10-12] MEDS: Duovisc Viscoelastic System EACH 1 EACH (14:13)
[2023-10-12] MEDS: Lidocaine 1% Pres-Free 5 ML VIAL (14:14)
[2023-10-12] MEDS: Trypan Blue 0.06% 0.5 ML SYR (14:15)
[2023-10-12] MEDS: Povidone-Iodine Ophth 30 ML BTL (14:15)
[2023-10-12] MEDS: Prednisolone 1%, Moxifloxacin 0.5%, Bromfenac 0.09% 5.6ML BTL OD (14:16)
[2023-10-12] MEDS: Balanced Salt Soln.-PLUS 500 ML BAG OP (14:16)
[2023-10-12] MEDS: Tetracaine 0.5% 4 ML BTL OD (14:18)
[2023-10-12 14:39] VITALS: BP 124/91; PULSE 60; RESP 16; TEMP 36.8; O2SAT 97
--- NOTE | 2023-10-12 14:42 | W.PM.DSUDISC ---
Date of service: 10/12/23 Time of Service: 14:44 Discharge Plan Disposition Patient Disposition: Home Discharge Details Attending Provider: Jeffrey Monge Primary Care Provider: Sumit Amado Home Meds and New Rx's Prescriptions: No Action acyclovir 400 mg tablet 400 mg PO Q4H PRN (Reason: cold sores) Qty: 5 0RF Rx Instructions: while awake; give 5 doses in 24 hours (DME) Accu-Chek SmartView Test Strip Strip See Rx Instructions .ROUTE .MEDSUPPLY Rx Instructions: Check blood sugar twice a day metformin 500 mg tablet extended release 24hr 500 mg PO DAILY Qty: 90 4RF Rx Instructions: dose decrease - unable to tolerate higher dose ASPIRIN 81 MG tablet 1 tab PO DAILY One Daily Complete 1 EACH tablet 1 tab PO DAILY (DME) blood-glucose meter [Contour Next EZ Meter] Kit See Rx Instructions .Route Qty: 1 0RF Rx Instructions: As directed three times a day (DME) lancets [Accu-Chek Softclix Lancets] Misc See Rx Instructions .Route Qty: 200 3RF Rx Instructions: Check blood sugar twice a day famotidine 20 mg tablet See Rx Instructions .ROUTE .COMPLEX Qty: 90 3RF Dose Instruction: TAKE ONE TABLET BY MOUTH AT BEDTIME Rx Instructions: TAKE ONE TABLET BY MOUTH AT BEDTIME ondansetron HCl 4 mg tablet 4 mg PO Q8H PRN (Reason: nausea and vomiting) Qty: 60 0RF omeprazole 40 mg capsule,delayed release(DR/EC) See Rx Instructions .ROUTE .COMPLEX Qty: 90 4RF Dose Instruction: TAKE ONE CAPSULE BY MOUTH EVERY MORNING Rx Instructions: TAKE ONE CAPSULE BY MOUTH EVERY MORNING sertraline 50 mg tablet See Rx Instructions .ROUTE .COMPLEX Qty: 90 1RF Dose Instruction: TAKE ONE TABLET BY MOUTH EVERY DAY Rx Instructions: TAKE ONE TABLET BY MOUTH EVERY DAY clotrimazole 1 % cream 1 applic topical BID Qty: 45 0RF hydrochlorothiazide 25 mg tablet 25 mg PO DAILY Qty: 90 3RF atorvastatin 40 mg tablet See Rx Instructions .ROUTE .COMPLEX Qty: 90 1RF Dose Instruction: TAKE ONE TABLET BY MOUTH EVERY DAY Rx Instructions: TAKE ONE TABLET BY MOUTH EVERY DAY metoprolol succinate 25 mg tablet extended release 24 hr 25 mg PO DAILY Qty: 90 1RF Discharge Instructions Stand Alone Forms: DSU Post-Op Cataract, Press Ganey (DSU) Discharge Orders Discharge Orders: Discharge Order (Routine); Ordered 10/12/23 Ordered By: Jeffrey Monge DS: Diagnosis Discharge Diagnosis (1) Posterior subcapsular age-related cataract, right eye: Status: Resolved (2) Nuclear age-related cataract, right eye: Status: Resolved
--- NOTE | 2023-10-12 14:44 | W.PM.OP ---
Date of service: 10/12/23 Time of Service: 14:44 Operative Note Operative Note DATE OF PROCEDURE: 10/12/23 PRE-OP DIAGNOSIS: Nuclear/posterior subcapsular cataract, right eye POST-OP DIAGNOSIS: same PROCEDURE: Cataract extraction using phacoemulsification with intraocular lens implant, right eye SURGEON: Jeffrey Monge ANESTHESIA TYPE: Local By Surgeon and MAC Refer to Anesthesia Record ESTIMATED BLOOD LOSS: 0 PATHOLOGY: none sent COMPLICATIONS: None Patient was transported to: same day Patient's condition: stable Implants: Ismael Clareon [id number] Indications: Progressive decreased vision due to cataract, right eye Procedure Description: CATARACT SURGERY OPERATIVE REPORT PREOPERATIVE DIAGNOSIS: Nuclear/posterior subcapsular cataract, right eye Primary open angle glaucoma, right eye POSTOPERATIVE DIAGNOSIS: Same OPERATION: Cataract extraction using phacoemulsification with posterior chamber intraocular lens implant, right eye. IOL: IOL Screw Machine Repairer/Model: Ismael Clareon [id number] IOL Power: +23.0 diopters IOL Serial Number: [id number]] Optic Diameter: 6.0mm Haptic/Overall Diameter: 13.0mm PHACO INFO: Ismael Centurion Vision System with OZil and Active Fluidics Cumulative Dispersed Energy (CDE): 17.39 seconds SURGEON: Jeffrey Monge MD, DEBORAH ANESTHESIA: Monitored Anesthesia Care (MAC), with local sub-tenon's anesthetic infiltration COMPLICATIONS: None SPECIMENS: None INDICATIONS FOR PROCEDURE: The patient is an 83 year old male with history of progressive decreased vision in both eyes from nuclear/posterior subcapsular cataract. He is significantly symptomatic that he desires cataract surgery in attempt to improve and maximize his vision. See office notes for detailed information. PROCEDURE: The correct surgical eye was identified and marked as the right eye and the pupil was dilated in the preoperative area using mydriatics and cycloplegics. The dilated pupil size was 5mm. The patient elected to proceed without oral sedation. The patient was brought to the operating room where cardiopulmonary monitoring was instituted and surgical time-out was performed, confirming the correct operative eye and IOL power. Topical anesthesia was administered and ophthalmic povidone-iodine 5% was instilled into the conjunctival fornices. The maxine-ocular area was prepped with Betadine 10% solution and draped in the usual sterile fashion for intraocular surgery, including an aperture drape. A Tegaderm transparent film dressing was cut in half and used to cover the lashes and lid margins. Care was taken to sequester the lashes and lid margins under the Tegaderm dressing. A lid speculum was placed between the lids of the operative eye and the Ismael LuxOR Revalia operating microscope was maneuvered into position. Ishan scissors were then used to make a conjunctival buttonhole approximately 6mm posterior to the limbus in the inferonasal quadrant. Blunt dissection was carried out to expose bare sclera, and a blunt-tipped sub-tenon?s anesthesia cannula was introduced and passed posteriorly along the globe where non-preserved plain lidocaine was injected into posterior sub-Tenon?s space. A sideport knife was used to make a paracentesis port. Intraocular phenylephrine/lidocaine was injected into the anterior chamber. The anterior chamber was then filled with viscoelastic. A keratome knife was used to construct a two--plane clear corneal tunnel extending 2.0mm into clear cornea. A flap was raised on the anterior capsule and capsulorhexis forceps were used to complete a continuous curvilinear capsulorhexis of 4.8mm. Balanced salt solution was then used to perform cortical cleaving hydrodissection and nuclear hydrodelineation until the lens could be freely rotated within the capsular bag. The lens nucleus was then disassembled and removed within the capsular bag and iris plane using phacoemulsification. The lens nucleus was quite dense. Residual cortical material was removed using the I/A handpiece. The posterior capsule was carefully polished to remove as much residual lens epithelial cells as safely possible. The capsular bag was then inflated and the anterior chamber deepened with cohesive viscoelastic. The lens implant described above was inserted into the capsular bag using the Ismael Autonome Injector. A Kuglen hook was used to dial the IOL into position. Residual viscoelastic was then removed first from posterior to the IOL, then from the anterior chamber using the I/A handpiece. The lens implant was noted to center nicely within the capsular bag. The incisions were stromally hydrated, and the anterior chamber was reformed using BSS. Then 0.5cc of moxifloxacin 1.0mg/ml were injected into the capsular bag and anterior chamber. The incisions were checked with a Weck spear and found to be secure. Several drops of ophthalmic povidone-iodine 5% were then applied to the eye followed by two drops of combination steroid/NSAID/antibiotic solution. The drapes were removed and a clear plastic protective eye shield was placed over the eye. The patient was then returned to Same Day Surgery in stable condition.
--- NOTE | 2023-10-12 15:04 | W.ANESPOSTOP ---
Postoperative Evaluation Date, Time and Location Date Performed: 10/12/23 Time Performed: 15:04 Patient Location: Day Surgery Unit Vital Signs Most Recent Imported Vital Signs: Most Recent Vital Signs Temp Pulse Resp BP Pulse Ox 36.8 C 60 16 124/91 H 97 10/12/23 14:39 10/12/23 14:39 10/12/23 14:39 10/12/23 14:39 10/12/23 14:39 Pain Score Most Recent Pain Score: Most Recent Pain Score Pain Level 0 10/12/23 14:39 Assessment Mental Status: Awake (Alert & Oriented to Patient Baseline) Airway and Respiratory Function: Patent airway with normal (patient baseline) respiratory exam Cardiovascular Function: Hemodynamically Stable Hydration Status: Adequately Hydrated Nausea & Vomiting: No Nausea or Vomiting Pain: Pt. Denies Any Pain Peripheral Nerve Block: Patient did not receive a nerve block
== END 2023-10-12 15:07 | disposition home or self-care (01) ==
LOC: SUR 13:11
PROVIDERS: PCP Nurse Practitioner Family; Visit Provider Ophthalmology
PROC: (CPT 66984; principal; 2023-10-12 15:30)
DX: H25.041 Posterior subcapsular polar age-related cataract, right eye (principal); H25.11 Age-related nuclear cataract, right eye; H40.1110 Primary open-angle glaucoma, right eye, stage unspecified
CPT/HCPCS: 66984; 00123; V2632; J2003

== ENCOUNTER 2023-10-26 10:38 | Day surgery (SDC) | payer MEDICARE, SELFPAY ==
--- NOTE | 2023-10-25 19:48 | W.PREOPHP ---
Assessment and Plan Assessment and plan (1) Posterior subcapsular age-related cataract of left eye: Status: Acute Assessment and plan: Assessment: Visually significant cataract, left eye. Plan: Cataract extraction with intraocular lens implant, left eye. (2) Nuclear age-related cataract, left eye: Status: Acute Assessment and plan: Assessment: Visually significant cataract, left eye. Plan: Cataract extraction with intraocular lens implant, left eye. (3) Primary open angle glaucoma (POAG) of left eye, mild stage: Status: Acute Assessment and plan: Assessment: Primary open angle glaucoma, left eye. Plan: Minimally invasive glaucoma surgery left eye History of Present Illness History of Present Illness Chief Complaint: Decreased vision left eye, glaucoma left eye Narrative: The patient is an 83-year-old male with history of diminished visual acuity in both eyes secondary to the development of dense bilateral cataract. He notes decreased vision at both distance and near, and he can no longer see to drive at night. He has a history of open-angle glaucoma which was controlled on 1 topical medication. Dense bilateral cataracts were noted, and he underwent cataract surgery in the right eye on 10/12/2023. He is doing well postoperatively, and now presents for cataract surgery in the left eye. In addition, a minimally invasive glaucoma surgery is planned at the time of cataract surgery to reduce his dependency on topical eyedrops and improve intraocular pressure control. See office notes for detailed information. Review of Systems All systems reviewed & are unremarkable except as noted in HPI and below PFSH All Active Problems Posterior subcapsular age-related cataract of left eye (Acute) Nuclear age-related cataract, left eye (Acute) Primary open angle glaucoma (POAG) of left eye, mild stage (Acute) Tick bite (Acute) Actinic keratoses (Acute) Osteoarthritis of left hip (Acute) Spinal stenosis of lumbar region with radiculopathy (Acute) Primary open angle glaucoma (POAG) of right eye, mild stage (Acute) Trochanteric bursitis, left hip (Acute) DEPO MEDROL 06/02/2022; 01/18/23 Pacemaker (Acute) compatible with [place] [facility] [place] Weakness (Acute) Post-nasal drip (Acute) Concern about skin disease without diagnosis (Acute) Depressive disorder (Acute 01/11/03) Diverticulosis of colon without diverticulitis (Acute) Family history of diabetes mellitus (Acute) History of esophagogastroduodenoscopy (Acute) Peptic reflux disease (Acute) Polyp of colon (Acute) Status post rotator cuff repair (Acute) Sensory hearing loss, bilateral (Acute 08/18/13) Osteoarthritis (Acute) right hip Impotence of organic origin (Acute) Hyperlipidemia (Acute) Hearing loss (Acute) Gastroesophageal reflux disease (Acute 10/31/12) Essential hypertension (Acute 10/30/12) Disorder of esophagus (Acute) presbyesophagus Diabetes mellitus (Acute 04/30/15) Coronary artery disease involving [place] coronary artery of [place] heart without angina pectoris (Acute 03/17/16) 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 Medical History Left hip pain Foreign body (FB) in soft tissue Sliver base of right thumb - pressure treated wood, been there a couple of weeks, very tender Encounter for annual physical exam Problem with sexual function Spinal stenosis of lumbar region at multiple levels (08/18/14) Low back pain Bradycardia (10/24/16) Rate in 30's at night Acute diffuse otitis externa of right ear (12/04/16) Hypertension GERD (gastroesophageal reflux disease) Osteoarthritis Hyperlipidemia Hearing loss Lumbago History of Helicobacter pylori infection Surgical History History of permanent cardiac pacemaker placement [facility] History of cataract surgery Hx of CABG 2017 throat surgery ? Ulcer in throat Rotator Cuff Repair (~01/2001) left EGD - MAC 02/09/14 Family History Mother , 91 Diabetes Essential hypertension Heart disease Hyperlipidemia Stroke Father , 82 Parkinson disease Heart disease Sister Hyperlipidemia Brother , 54 Heart disease Brother , 70 No problems noted. Brother Diabetes Heart disease Brother Diabetes Heart disease Sister Diabetes Heart disease Maternal Grandfather No problems noted. Paternal Grandfather No problems noted. Maternal Grandmother No problems noted. Paternal Grandmother No problems noted. Social History Smoking/Tobacco Use Status: Former Tobacco Use Quit Date: 02/12/1967 Tobacco: How many years used: 5 Second Hand Exposure: Yes Smoking risk assessment performed?: Yes Alcohol Intake: never Drug use: Never Substance use type: does not use Counseling given: No Counseling provided: none Caregiver/Support person: No Household members: spouse Housing: house Communication Needs: Hard of Hearing and Corrective Lenses Do you need help understanding health information?: Rarely Pets and animals: Yes Pets and animals: horse(s) Sexually active: No Do you think of yourself as: straight/heterosexual Current gender identity: male What is your relationship status?: How often do you talk on the phone with friends or family?: three or more times per week How often do you get together with friends or relatives?: three or more times per week How often do you attend synagogue or spiritism services?: 1-3 times per year Do you belong to any clubs or organized social groups?: yes Panel score (0-1 are the most socially isolated patients): 3 What type of physical activity do you participate in: none Frequency: does not exercise Rosalba/Oriental Orthodox: Baptist Special rosalba needs: No Seatbelt use: always Helmet use: Yes Helmet use: sometimes Drive intox 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 Do you feel safe at home: Yes (UTAP) Do you feel safe in your relationship?: Yes Meds Allergies and Home Medications Allergies Allergy/AdvReac Type Severity Reaction Status Date / Time No Known Allergies Allergy Verified 10/26/23 11:06 Home Medications ?Medication ?Instructions ?Recorded ?Confirmed ?Type Aspirin 1 tab PO DAILY 05/13/12 10/26/23 History multivitamin with minerals (One 1 tab PO DAILY 05/13/12 10/26/23 History Daily Complete tablet) acyclovir 400 mg tablet 400 mg PO Q4H PRN cold sores #5 09/18/19 10/26/23 Rx tabs blood-glucose meter (Contour Next #1 ea 01/12/22 09/25/23 Rx EZ Meter kit) lancets (Accu-Chek Softclix #200 ea 01/13/22 09/25/23 Rx Lancets) blood sugar diagnostic (Accu-Chek 05/08/22 09/25/23 History SmartView Test Strips) famotidine 20 mg tablet See Rx Instructions .Route 11/03/22 10/26/23 Rx .COMPLEX #90 tabs metformin 500 mg tablet,extended 500 mg PO DAILY #90 tabs 12/26/22 10/26/23 Rx release 24hr (osmotic) ondansetron HCl 4 mg tablet 4 mg PO Q8H PRN nausea and 01/10/23 10/26/23 Rx vomiting #60 tabs omeprazole 40 mg capsule,delayed See Rx Instructions .Route 03/01/23 10/26/23 Rx release .COMPLEX #90 caps sertraline 50 mg tablet See Rx Instructions .Route 08/06/23 10/26/23 Rx .COMPLEX #90 tabs clotrimazole 1 % topical cream 1 applic topical BID #45 grams 09/12/23 10/26/23 Rx atorvastatin 40 mg tablet See Rx Instructions .Route 09/17/23 10/26/23 Rx .COMPLEX #90 tabs hydrochlorothiazide 25 mg tablet 25 mg PO DAILY #90 tabs 09/17/23 10/26/23 Rx metoprolol succinate 25 mg 25 mg PO DAILY #90 tabs 09/27/23 10/26/23 Rx tablet,extended release 24 hr Exam Eyes Other: Most recent ocular examination is significant for uncorrected visual acuity of 20/25 in the right eye. Corrected visual acuity is 20/40 in the left eye. Intraocular pressure is 16 in the right and 15 in the left. Extract motility is normal. Slit-lamp examination is significant for a well-positioned PCIOL in the right eye with clear posterior capsule. In the left eye there is a dense nuclear cataract with mild posterior subcapsular cataract. Funduscopic examination is significant for disc cupping of 0.6 OU with normal vessels, macula, peripheral retina and vitreous. In the right eye there is a 1 disc diameter choroidal nevus present nasally. Optic cup is quite deep in both eyes. Resp Auscultation: clear to auscultation bilaterally Cardio Rate: regular rate Rhythm: regular rhythm
--- NOTE | 2023-10-26 09:49 | W.ANESPRE ---
General Info Date of Service Date Performed: 10/26/23 Height: 5 ft 9 in Weight: 69.6 kg Body Mass Index (BMI): 22.6 Surgical Procedure: Operation Date: 10/26/23 11:25 Proposed Procedure Side Surgeon p Cataract Extraction with IOL Implant w/Glaucoma Stent Left Jeffrey Monge MD Meds Allergies and Home Medications Allergies Allergy/AdvReac Type Severity Reaction Status Date / Time No Known Allergies Allergy Verified 10/24/23 12:50 Home Medication ?Medication ?Instructions ?Recorded Aspirin 1 tab PO DAILY 05/13/12 multivitamin with minerals (One 1 tab PO DAILY 05/13/12 Daily Complete tablet) acyclovir 400 mg tablet 400 mg PO Q4H PRN cold sores #5 09/18/19 tabs blood-glucose meter (Contour Next #1 ea 01/12/22 EZ Meter kit) lancets (Accu-Chek Softclix #200 ea 01/13/22 Lancets) blood sugar diagnostic (Accu-Chek 05/08/22 SmartView Test Strips) famotidine 20 mg tablet See Rx Instructions .Route 11/03/22 .COMPLEX #90 tabs metformin 500 mg tablet,extended 500 mg PO DAILY #90 tabs 12/26/22 release 24hr (osmotic) ondansetron HCl 4 mg tablet 4 mg PO Q8H PRN nausea and 01/10/23 vomiting #60 tabs omeprazole 40 mg capsule,delayed See Rx Instructions .Route 03/01/23 release .COMPLEX #90 caps sertraline 50 mg tablet See Rx Instructions .Route 08/06/23 .COMPLEX #90 tabs clotrimazole 1 % topical cream 1 applic topical BID #45 grams 09/12/23 atorvastatin 40 mg tablet See Rx Instructions .Route 09/17/23 .COMPLEX #90 tabs hydrochlorothiazide 25 mg tablet 25 mg PO DAILY #90 tabs 09/17/23 metoprolol succinate 25 mg 25 mg PO DAILY #90 tabs 09/27/23 tablet,extended release 24 hr Current Visit Medications: Current Medications Generic Name Dose Route Start Last Admin Trade Name Freq PRN Reason Stop Dose Admin Acetaminophen 1,000 mg 10/26/23 06:00 Acetaminophen 500 Mg Tab PO 11/25/23 05:59 Q4H PRN PRN Balanced Salt Solution 500 ml 10/26/23 06:00 Balanced Salt Soln.-Plus 500 Ml Bag OP 11/25/23 05:59 DIRECTED [facility] Miscellaneous Medication 0 ml 10/26/23 06:00 Prednisolone 1%, Moxifloxacin 0.5%, Bromfenac 0.09% 5.6ml Btl OS 11/25/23 05:59 DIRECTED [facility] Miscellaneous Medication 0 ml 10/26/23 06:00 Tropicam./Phenyleph. (1/2.5%) 5 Ml Btl OS 11/25/23 05:59 DIRECTED [facility] Tetracaine HCl 0 ml 10/26/23 06:00 Tetracaine 0.5% 4 Ml Btl OS 11/25/23 05:59 DIRECTED [facility] PFSH Active Problems Active Problems: Problem Status Onset Code Posterior subcapsular age-related cataract of left eye Acute H25.042 Nuclear age-related cataract, left eye Acute H25.12 Primary open angle glaucoma (POAG) of left eye, mild stage Acute H40.1121 Tick bite Acute W57.XXXA Actinic keratoses Acute L57.0 Osteoarthritis of left hip Acute M16.12 Spinal stenosis of lumbar region with radiculopathy Acute M48.061, M54.16 Primary open angle glaucoma (POAG) of right eye, mild stage Acute H40.1111 Posterior subcapsular age-related cataract, right eye Resolved H25.041 Nuclear age-related cataract, right eye Resolved H25.11 Trochanteric bursitis, left hip Acute M70.62 Pacemaker Acute Z95.0 Weakness Acute R53.1 Post-nasal drip Acute R09.82 Concern about skin disease without diagnosis Acute Z71.1 Depressive disorder Acute 01/11/03 F32.9 Diverticulosis of colon without diverticulitis Acute K57.30 Family history of diabetes mellitus Acute Z83.3 History of esophagogastroduodenoscopy Acute Z98.890 Peptic reflux disease Acute K21.9 Polyp of colon Acute K63.5 Status post rotator cuff repair Acute Z98.890 Sensory hearing loss, bilateral Acute 08/18/14 H90.3 Osteoarthritis Acute M19.90 Impotence of organic origin Acute N52.9 Hyperlipidemia Acute E78.5 Hearing loss Acute H91.90 Gastroesophageal reflux disease Acute 10/31/12 K21.9 Essential hypertension Acute 13 I10 Disorder of esophagus Acute K22.9 Diabetes mellitus Acute 04/30/15 E11.9 Coronary artery disease involving [place] coronary artery of [place] heart without angina pectoris Acute 03/17/16 I25.10 Medical History Medical History (Updated 10/25/23 @ 19:34 by Jeffrey Monge MD) Left hip pain Foreign body (FB) in soft tissue Sliver base of right thumb - pressure treated wood, been there a couple of weeks, very tender Encounter for annual physical exam Problem with sexual function Spinal stenosis of lumbar region at multiple levels (08/18/14) Low back pain Bradycardia (10/24/16) Rate in 30's at night Acute diffuse otitis externa of right ear (12/04/16) Hypertension GERD (gastroesophageal reflux disease) Osteoarthritis Hyperlipidemia Hearing loss Lumbago History of Helicobacter pylori infection Surgical History Surgical History History of permanent cardiac pacemaker placement NetPress Digital History of cataract surgery Hx of CABG 2017 throat surgery ? Ulcer in throat Rotator Cuff Repair (~01/2001) left EGD - MAC 02/09/14 Tobacco Smoking/Tobacco Use Status: Former Tobacco Use Passive smoking exposure: Yes Second hand exposure: Yes Alcohol Alcohol Intake: never Substance Use Substance use: Never Substance use type: does not use Counseling provided: none Vital Signs and Lab Results Lab Results Blood Type / Crossmatch: No Data to Display Complete Blood Count: No Data to Display Complete Metabolic Panel: No Data to Display Liver Function Panel: No Data to Display Coagulation Panel: No Data to Display Cardiac Panel: No Data to Display Arterial Blood Gas: No Data to Display Venous Blood Gas: No Data to Display Pancreas Panel: No Data to Display Thyroid Panel: No Data to Display Infectious Disease: No Data to Display Blood Cultures: No Data to Display Toxicology Panel: No Data to Display Anesthesia Assessment and Plan Anesthesia History Personal History: No History of Anesthesia Complications Family History: No Family History of Anesthesia Complications Exercise Tolerance Exercise Tolerance: Metabolic Equivalents>4 Cardiac & Pulmonary Exam Cardiac Exam: Normal S1/S2 Heart Sounds Pulmonary Exam: Clear Bilateral Breath Sounds Implantable Cardiac Device Does patient have a Pacemaker or an ICD?: Yes Device Twisthand:: NetPress Digital Reason for Placement:: Bradycardia Date of Last Device Interrogation:: 09/30/23 Airway Exam Known Difficult Airway: No Mallampati Class: 2 Mouth Opening: Normal (> 3cm) Thyromental Distance: Greater than 3 cm Neck Range of Motion: Full ROM Neck Circumference: Normal Teeth Condition: Normal Dentition ASA Classification ASA Score: ASA 3 Emergency Case?: No NPO Status NPO Status: NPO Clears >2 hours, Solids >8 hours Anesthesia Plan Resuscitation Status: Full Code Anesthesia Technique: MAC Anesthesia Airway Planned: Natural Airway Monitors Used: Standard Monitors Preoperative Comments:: 83 yo for cataract removal. previous without MKO. no issues.
[2023-10-26 09:50] VITALS: BMI 22.6
[2023-10-26 10:54] VITALS: BP 143/83; PULSE 59; RESP 18; TEMP 36.5; O2SAT 98
[2023-10-26] MEDS: Tropicam./Phenyleph. (1/2.5%) 5 ML BTL OS ×3 (11:01→11:11)
[2023-10-26] MEDS: Tetracaine 0.5% 4 ML BTL OS (11:17)
[2023-10-26] MEDS: Duovisc Viscoelastic System EACH 1 EACH (11:29)
[2023-10-26] MEDS: Lidocaine 1% Pres-Free 5 ML VIAL (11:30)
[2023-10-26] MEDS: Povidone-Iodine Ophth 30 ML BTL (11:32)
[2023-10-26] MEDS: Balanced Salt Soln.-PLUS 500 ML BAG OP (11:33)
[2023-10-26] MEDS: Prednisolone 1%, Moxifloxacin 0.5%, Bromfenac 0.09% 5.6ML BTL OS (11:33)
[2023-10-26] MEDS: Trypan Blue 0.06% 0.5 ML SYR (11:36)
[2023-10-26 12:05] VITALS: BP 138/89; PULSE 60; RESP 18; TEMP 36.3; O2SAT 97
--- NOTE | 2023-10-26 12:05 | W.PM.DSUDISC ---
Date of service: 10/26/23 Time of Service: 12:05 Discharge Plan Disposition Patient Disposition: Home Discharge Details Attending Provider: Jeffrey Monge Primary Care Provider: Sumit Amado Home Meds and New Rx's Prescriptions: No Action acyclovir 400 mg tablet 400 mg PO Q4H PRN (Reason: cold sores) Qty: 5 0RF Rx Instructions: while awake; give 5 doses in 24 hours (DME) Accu-Chek SmartView Test Strip Strip See Rx Instructions .ROUTE .MEDSUPPLY Rx Instructions: Check blood sugar twice a day metformin 500 mg tablet extended release 24hr 500 mg PO DAILY Qty: 90 4RF Rx Instructions: dose decrease - unable to tolerate higher dose ASPIRIN 81 MG tablet 1 tab PO DAILY One Daily Complete 1 EACH tablet 1 tab PO DAILY (DME) blood-glucose meter [Contour Next EZ Meter] Kit See Rx Instructions .Route Qty: 1 0RF Rx Instructions: As directed three times a day (DME) lancets [Accu-Chek Softclix Lancets] Misc See Rx Instructions .Route Qty: 200 3RF Rx Instructions: Check blood sugar twice a day famotidine 20 mg tablet See Rx Instructions .ROUTE .COMPLEX Qty: 90 3RF Dose Instruction: TAKE ONE TABLET BY MOUTH AT BEDTIME Rx Instructions: TAKE ONE TABLET BY MOUTH AT BEDTIME ondansetron HCl 4 mg tablet 4 mg PO Q8H PRN (Reason: nausea and vomiting) Qty: 60 0RF omeprazole 40 mg capsule,delayed release(DR/EC) See Rx Instructions .ROUTE .COMPLEX Qty: 90 4RF Dose Instruction: TAKE ONE CAPSULE BY MOUTH EVERY MORNING Rx Instructions: TAKE ONE CAPSULE BY MOUTH EVERY MORNING sertraline 50 mg tablet See Rx Instructions .ROUTE .COMPLEX Qty: 90 1RF Dose Instruction: TAKE ONE TABLET BY MOUTH EVERY DAY Rx Instructions: TAKE ONE TABLET BY MOUTH EVERY DAY clotrimazole 1 % cream 1 applic topical BID Qty: 45 0RF hydrochlorothiazide 25 mg tablet 25 mg PO DAILY Qty: 90 3RF atorvastatin 40 mg tablet See Rx Instructions .ROUTE .COMPLEX Qty: 90 1RF Dose Instruction: TAKE ONE TABLET BY MOUTH EVERY DAY Rx Instructions: TAKE ONE TABLET BY MOUTH EVERY DAY metoprolol succinate 25 mg tablet extended release 24 hr 25 mg PO DAILY Qty: 90 1RF Discharge Instructions Stand Alone Forms: DSU Post-Op Cataract, Press Ganey (DSU) Discharge Orders Discharge Orders: Discharge Order (Routine); Ordered 10/26/23 Ordered By: Jeffrey Monge DS: Diagnosis Discharge Diagnosis (1) Posterior subcapsular age-related cataract of left eye: Status: Resolved (2) Nuclear age-related cataract, left eye: Status: Resolved (3) Primary open angle glaucoma (POAG) of left eye, mild stage: Status: Chronic
--- NOTE | 2023-10-26 12:09 | ROE_ITS ---
Date of service: 10/26/23 Time of Service: 12:09 Operative Note Operative Note DATE OF PROCEDURE: 10/26/23 PRE-OP DIAGNOSIS: Nuclear/posterior subcapsular cataract, left eye Poorly dilating pupil, left eye Primary open-angle glaucoma, left eye, mild stage POST-OP DIAGNOSIS: same PROCEDURE: Cataract extraction using phacoemulsification with intraocular lens implant, left eye Goniotomy, left eye Pupillary dilation and iris stabilization with pupillary expansion device SURGEON: Jeffrey Monge ANESTHESIA TYPE: Local By Surgeon and MAC Refer to Anesthesia Record PATHOLOGY: none sent COMPLICATIONS: None Patient was transported to: same day Patient's condition: stable Implants: Ismael Clareon [id number] Indications: Progressive decreased vision due to cataract, left eye Primary open-angle glaucoma, left eye, mild stage, managed on 1 topical eyedrop Procedure Description: CATARACT SURGERY OPERATIVE REPORT PREOPERATIVE DIAGNOSIS: Nuclear/posterior subcapsular cataract, left eye Primary open-angle glaucoma, mild stage, left eye Poorly dilating pupil, left eye POSTOPERATIVE DIAGNOSIS: Same OPERATION: Cataract extraction using phacoemulsification with posterior chamber intraocular lens implant, left eye. Goniotomy, left eye Pupillary dilation and iris stabilization with 7.0 mm Malyugin ring IOL: IOL Hand Or Machine Paster/Model: Ismael Clareon [id number] IOL Power: + 22.5 diopters IOL Serial Number: [id number] Optic Diameter: 6.0mm Haptic/Overall Diameter: 13.0mm PHACO INFO: Ismael Centurion Vision System with OZil and Active Fluidics Cumulative Dispersed Energy (CDE): 18.7 seconds SURGEON: Jeffrey Monge MD, DEBORAH ANESTHESIA: Monitored Anesthesia Care (MAC), with local sub-tenon's anesthetic infiltration COMPLICATIONS: None SPECIMENS: None INDICATIONS FOR PROCEDURE: The patient is an 83-year-old male with history of diminished visual acuity in both eyes secondary to the development of dense bilateral nuclear/posterior subcapsular cataract. He also has primary open-angle glaucoma, mild stage, in both eyes managed with 1 topical medication. He has already undergone cataract surgery in the right eye and is doing well postoperatively. He now presents for cataract surgery in the left eye. A minimally invasive glaucoma surgery is also planned to reduce his dependence on topical medications. See office notes for detailed information. PROCEDURE: The correct surgical eye was identified and marked as the left eye and the pupil was dilated in the preoperative area using mydriatics and cycloplegics. The dilated pupil size was 4.0 mm The patient elected to proceed without oral sedation. The patient was brought to the operating room where cardiopulmonary monitoring was instituted and surgical time-out was performed, confirming the correct operative eye and IOL power. Topical anesthesia was administered and ophthalmic povidone-iodine 5% was instilled into the conjunctival fornices. The maxine-ocular area was prepped with Betadine 10% solution and draped in the usual sterile fashion for intraocular surgery, including an aperture drape. A Tegaderm transparent film dressing was cut in half and used to cover the lashes and lid margins. Care was taken to sequester the lashes and lid margins under the Tegaderm dressing. A lid speculum was placed between the lids of the operative eye and the Ismael LuxOR Revalia operating microscope was maneuvered into position. Ishan scissors were then used to make a conjunctival buttonhole approximately 6mm posterior to the limbus in the inferonasal quadrant. Blunt dissection was carried out to expose bare sclera, and a blunt-tipped sub-tenon?s anesthesia cannula was introduced and passed posteriorly along the globe where non- preserved plain lidocaine was injected into posterior sub-Tenon?s space. A sideport knife was used to make a paracentesis port. VisionBlue was injected into the anterior chamber and allowed to sit for 30 seconds. Intraocular phenylephrine/lidocaine was injected into the anterior chamber. The anterior chamber was then filled with viscoelastic. A keratome knife was used construct a two-plane clear corneal tunnel extending 2.0mm into clear cornea. A 7.0 mm Malyugin ring was then inserted into the pupillary space and engaged with the Kuglen hook. A flap was raised on the anterior capsule and capsulorhexis forceps were used to complete a continuous curvilinear capsulorhexis of 5.0 mm. Balanced salt solution was then used to perform cortical cleaving hydrodissection and nuclear hydrodelineation until the lens could be freely rotated within the capsular bag. The lens nucleus was then disassembled and removed within the capsular bag and iris plane using phacoemulsification. Residual cortical material was removed using the irrigation/aspiration handpiece. The posterior capsule was carefully polished to remove as much residual lens epithelial cells as safely possible. The capsular bag was then inflated and the anterior chamber deepened with viscoelastic. The lens implant described above was inserted into the capsular bag using the Ismael Autonome Injector. A Kuglen hook was used to dial the IOL into position. The pupillary expansion device was then removed in the reverse order of its insertion. The anterior chamber was slightly overfilled with cohesive viscoelastic and viscoelastic was placed on the corneal surface. The patient's head and microscope were then tilted into the appropriate position for angle surgery. A self-retaining gonioscopic prism was then placed on the eye. Tthe nasal trabecular meshwork was well-visualized. A SureSight Brian goniotomy device was then introduced and used to enter the trabecular meshwork at approximately the 7 o'clock position, and a goniotomy was performed in a clockwise fashion for approximately 4 clock hours to the 11 o'clock position. A minimal amount of bleeding was present. The patient's head and microscope were then returned to the normal coaxial position. Residual viscoelastic was then removed first from posterior to the IOL, then from the anterior chamber using the I/A handpiece. The lens implant was noted to center nicely within the capsular bag. The incisions were stromally hydrated, and the anterior chamber was reformed using BSS. Then 0.5cc of moxifloxacin 1.0mg/ml were injected into the capsular bag and anterior chamber. The incisions were checked with a Weck spear and found to be secure. Several drops of ophthalmic povidone-iodine 5% were then applied to the eye followed by two drops of combination steroid/NSAID/antibiotic solution. The drapes were removed and a clear plastic protective eye shield was placed over the eye. The patient was then returned to Same Day Surgery in stable condition.
--- NOTE | 2023-10-26 12:27 | W.ANESPOSTOP ---
Postoperative Evaluation Date, Time and Location Date Performed: 10/26/23 Time Performed: 12:15 Patient Location: Day Surgery Unit Vital Signs Most Recent Imported Vital Signs: Most Recent Vital Signs Temp Pulse Resp BP Pulse Ox 36.3 C L 60 18 138/89 97 10/26/23 12:05 10/26/23 12:05 10/26/23 12:05 10/26/23 12:05 10/26/23 12:05 Pain Score Most Recent Pain Score: Most Recent Pain Score Pain Level 0 10/26/23 12:05 Assessment Mental Status: Awake (Alert & Oriented to Patient Baseline) Airway and Respiratory Function: Patent airway with normal (patient baseline) respiratory exam Cardiovascular Function: Hemodynamically Stable Hydration Status: Adequately Hydrated Nausea & Vomiting: No Nausea or Vomiting Pain: Pt. Denies Any Pain Peripheral Nerve Block: Patient did not receive a nerve block
== END 2023-10-26 12:26 | disposition home or self-care (01) ==
LOC: SUR 10:38
PROVIDERS: PCP Nurse Practitioner Family; Visit Provider Ophthalmology
PROC: (CPT 65820; principal; 2023-10-26 11:15)
DX: H25.042 Posterior subcapsular polar age-related cataract, left eye (principal); H25.12 Age-related nuclear cataract, left eye; H40.1121 Primary open-angle glaucoma, left eye, mild stage; Z98.41 Cataract extraction status, right eye
CPT/HCPCS: 65820; 66982; 00123; V2632; J2003

== ENCOUNTER 2023-11-05 08:46 | Outpatient (CLI) | payer MEDICARE, SELFPAY ==
[2023-11-05 12:20] LABS: HCT 44.7 % (40.0-50.0); MCH 29.2 pg (27.0-33.0); MCHC 33.6 % (32.0-36.0); MCV 87 fL (80-95); MPV 11.3 fL (8.0-11.0); Platelet Count 217 10^3/uL (130-400); RBC 5.13 10^6/uL (4.36-5.78); RDW 13.2 % (11.8-14.1); RDW-SD 41.8 fL; WBC 7.09 10^3/uL (4.4-10.8)
[2023-11-05 12:25] LABS: Anion Gap 9.5 mmol/L (3-11); BUN 20 mg/dL (7-18); CO2 29.5 mmol/L (21.0-32.0); CREATININE 1.2 mg/dL (0.70-1.30); Chloride 101 mmol/L (98-107); Estimated GFR 60.75 (mL/min/1.73m2); Glucose 257 mg/dL (74-106); Potassium 3.3 mmol/L (3.5-5.1); Sodium 140 mmol/L (136-145)
[2023-11-06 09:10] LABS: Lyme Ab w Rflx to Lyme Confirm Negative (Negative)
[2023-11-07 22:52] LABS: Anaplasma phagocytophilum Negative (Negative); B. miyamotoi PCR Negative (Negative); Babesia divergens/MO-1 Negative (Negative); Babesia duncani Negative (Negative); Babesia microti Negative (Negative); Ehrlichia chaffeensis Negative (Negative); Ehrlichia ewingii/canis Negative (Negative); Ehrlichia muris eauclairensis Negative (Negative)
== END 2023-11-05 08:47 | disposition home or self-care (01) ==
LOC: LOS 08:46
PROVIDERS: PCP Nurse Practitioner Family; Visit Provider Nurse Practitioner Family
DX: R53.83 Other fatigue (principal)
CPT/HCPCS: 36415; 80048; 85027; 87798; 86618

== ENCOUNTER → 2024-01-15 13:21 | Outpatient (BNVA) | payer MEDICARE, SELFPAY | PROVIDERS: PCP Nurse Practitioner Family; Referring Provider Nurse Practitioner Family; Visit Provider Surgery | DX: R11.0 Nausea (principal) | CPT/HCPCS: 99213 ==

== ENCOUNTER 2024-01-16 13:00 | Outpatient (REF) | payer MEDICARE, SELFPAY ==
[2024-01-18 13:52] LABS: Helicobacter pylori Ag, Feces Negative (Negative)
== END 2024-01-16 13:01 | disposition home or self-care (01) ==
LOC: LBN 13:00
PROVIDERS: PCP Nurse Practitioner Family; Visit Provider Surgery
DX: R11.0 Nausea (principal)
CPT/HCPCS: 87338

== ENCOUNTER 2024-01-21 07:52 | Outpatient (CLI) | payer MEDICARE, SELFPAY ==
--- NOTE | 2024-01-21 08:30 | RT.EKG_ITS ---
APPROVED REPORT Exam: Resting ECG Reason for Exam: CAD Patient Location: O HR:60 bpm ECG Measurements Heart Rate 60 AXIS WV 173 P -7 QRSd 102 QRS 31 QT 395 T -57 QTc 395 Conclusion Pacemaker spikes or artifacts...timing non-diagnostic Sinus rhythm...normal P axis, V-rate 50- 99 Inferior infarct, age indeterminate...Q>35mS, T neg, II III aVF
== END 2024-01-21 07:53 | disposition home or self-care (01) ==
LOC: DI.CARD 08:31
PROVIDERS: PCP Nurse Practitioner Family; Referring Provider Nurse Practitioner Family; Visit Provider Registered Nurse
DX: I25.10 Atherosclerotic heart disease of native coronary artery without angina pectoris (principal); I10 Essential (primary) hypertension; Z95.0 Presence of cardiac pacemaker
CPT/HCPCS: 93010

== ENCOUNTER → 2024-01-21 07:52 | Outpatient (BNVA) | payer MEDICARE, SELFPAY | PROVIDERS: PCP Nurse Practitioner Family; Referring Provider Nurse Practitioner Family; Visit Provider Registered Nurse | DX: R06.00 Dyspnea, unspecified (principal) | CPT/HCPCS: 93005; 99214 ==

== ENCOUNTER 2024-01-24 01:29 | Outpatient (CLI) | payer MEDICARE, SELFPAY ==
[2024-01-24] MEDS: Regadenoson 0.4 MG/5 ML SYR IVP (13:27)
--- NOTE | 2024-01-24 14:00 | DI.NM_ITS ---
APPROVED REPORT Exam: Pharmacologic Patient Location: Out-Patient Room/Bed: Stress Nurse: Renuka Real RN Ordering Provider:FRANCISCO RIBERA, Contact Number: BMI: 22.14 Baseline Rhythm: Atrial Paced Indications: SOB, CAD Medical History Medical History: Dyspnea, HTN, DM, GERD, HLD, hearing loss, CAD Cardiac Medications: Aspirin, atorvastatin, hydrochlorothiazide, metoprolol succinate, metformin, denise toprazole Allergies: NKA Cardiac Risk Factors: Family hx, HTN, HLD, diabetes Previous Cardiac Procedures: CABG (2017), pacemaker placement (2018) Pretest Chest Pain Characteristics: None Exercise History: Indeterminate Physical Disabilities: None Lung Sounds: Clear to auscultation Heart Sounds: Regular Stress Test Details Test: Pharmacologic stress testing performed using 0.4 mg of regadenoson per 5 mL given IV over 10 s econds. Reason for pharmacologic stress test: Pacemaker. Nuclear Acquisition: Rest Tc-99m/Stress Tc-99m 1 day Rest Isotope: Tc-99m Sestamibi. Dose: 10.0 Date: 01/24/2024 Injection Time: 1100 Stress Isotope: Tc-99m Sestamibi. Dose: 30.0 Date: 01/24/2024 Injection Time: 1255 HR Resting HR Supine: 61 bpm Max Heart Rate (APMHR): 139 bpm Resting HR Standin bpm Target HR (85% APMHR): 118 bpm Max HR Achieved: 97 bpm % of APMHR: 70 Recovery HR: 60 bpm BP Resting BP Supine: 144/82 mmHg Resting BP Standin/72 mmHg Max BP: 150/82 mmHg Recovery BP: 122/64 mmHg ECG Resting ECG: Atrial paced rhythm with intermittent V pacing Ectopy: rare PVC Stress ECG: Atrial Paced rhythm with intermittent V pacing ST Change: Nondiagnostic low heart rate Arrhythmia: Rare PVC Recovery ECG: Atiral paced rhythm Recovery ST Change: Nondiagnostic low heart rate Clinical Stress Symptoms: Mild SOB Angina Score: None Rate Pressure Product: [id number] Stress ECG Conclusion 1. Resting electrocardiogram showed atrial pacing, ventricular sensing and nondiagnostic ST T abnorma lities 2. Patient underwent testing using pharmacologic stress with regadenoson 3. Peak heart rate achieved was 70% of maximal predicted for age 4. The electrocardiographic portion of the test was nondiagnostic due to atrial and ventricular pacin g, inadequate heart rate 5. See MPI report Stress Test Summary STAGE HR BP SpO2 Symptoms NOTES Supine 61 144/82 Standing 65 134/72 1 min post Lexiscan injection 72 150/82 97% MildSOB 3 min post Lexiscan injection 65 128/64 98% 6 min post Lexiscan injection 61 122/64 SOB resolved at test end. Patient left stress lab ambulatory in no apparent distress. MPI Conclusion Myocardial perfusion is normal. There is no ischemia or evidence of prior infarction Ejection fraction is 52% with normal wall motion
== END 2024-01-24 01:49 ==
LOC: DI 01:29
PROVIDERS: PCP Nurse Practitioner Family; Visit Provider Registered Nurse
DX: R06.02 Shortness of breath (principal); I25.810 Atherosclerosis of coronary artery bypass graft(s) without angina pectoris
CPT/HCPCS: 78452; 93016; 93018; 93017; J2785

== ENCOUNTER 2024-02-12 06:54 | Day surgery (SDC) | payer MEDICARE, SELFPAY ==
--- NOTE | 2024-02-11 12:38 | W.PM.ENDDOP ---
Date of service: 02/12/24 Time of Service: 09:02 Endoscopy Report DATE OF PROCEDURE: 02/12/24 PRE-OP DIAGNOSIS: Abdominal discomfort and nausea POST-OP DIAGNOSIS: other (Mild gastritis and patulous hiatus) SURGEON: Yoana Crystal ANESTHESIA TYPE: General:No Airway ESTIMATED BLOOD LOSS: 2 PATHOLOGY: other COMPLICATIONS: None DISPOSITION: same day PROCEDURE DESCRIPTION: Informed consent was obtained from the pt; explaining the benefits and Risks: bleeding, infections, perforations {which could require surgery or antibiotics and prolonged hospital stay}, or ostomy, and complications of anaesthesia, river aspiration). The patient was take to the procedure room and placed in a supine position. Monitors were applied and a time out was done. The patients name, date of , procedure type, allergies to medications and metal in their body was reviewed. A bite block was placed and the patient was sedated. Once sedated and comfortable an Olympus gastroscope (see RN notes for scope #) was advanced through the oropharynx which was grossly normal, and passed into the esophagus. The proximal and mid-esophagus were normal. The distal esophagus does not show any: dilation/strictures/varices/erosions or ulcers/bleeding noted. 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 the scope was advanced into the stomach and through the pylorus into the proximal jejunum. The duodenum was noted to be normal. Biopsies were done of the duodenal bulb.. The scope was retracted back into the stomach and biopsies were taken of the antrum. There were no gastritis/gastropathy/ ulcers/masses noted. The scope was retroflexed. The cardia and fundus were noted to be normal. He does have a patulous hiatus. There is nothing herniated at this time, certainly could have a small sliding hiatal hernia. It would be less than 2 cm. The scope was retracted back into the esophagus and biopsies were done of the GE junction (in all 4 quadrants) and distal esophagus (2cm above the GE junction) to rule out Cervantes's. All specimens are retrieved and no bleeding was noted. The Z line was regular. The scope was removed and the patient was woken up and taken back to [facility] in stable condition.
--- NOTE | 2024-02-11 12:39 | PDOC.DSDIS_ITS ---
Date of service: 02/12/24 Discharge Plan Disposition Patient Disposition: Home Discharge Details Reason For Visit: egd Attending Provider: Yoana Crystal Primary Care Provider: Sumit Amado Home Meds and New Rx's Prescriptions: New lansoprazole [Prevacid] 30 mg capsule,delayed release(DR/EC) 30 mg PO DAILY Qty: 30 12RF Continued acyclovir 400 mg tablet 400 mg PO Q4H PRN (Reason: cold sores) Qty: 5 0RF Rx Instructions: while awake; give 5 doses in 24 hours (DME) Accu-Chek SmartView Test Strip Strip See Rx Instructions .ROUTE .MEDSUPPLY Rx Instructions: Check blood sugar twice a day polyethylene glycol 3350 [Miralax] 17 gram/dose powder 17 g PO BID PRN (Reason: constipation) Qty: 850 0RF metformin 500 mg tablet extended release 24hr 500 mg PO DAILY Qty: 90 4RF Rx Instructions: dose decrease - unable to tolerate higher dose ondansetron HCl 4 mg tablet 4 mg PO Q8H PRN (Reason: nausea and vomiting) Qty: 60 0RF (DME) blood-glucose meter [Contour Next EZ Meter] Kit See Rx Instructions .Route Qty: 1 0RF Rx Instructions: As directed three times a day (DME) lancets [Accu-Chek Softclix Lancets] Misc See Rx Instructions .Route Qty: 200 3RF Rx Instructions: Check blood sugar twice a day sertraline 50 mg tablet See Rx Instructions .ROUTE .COMPLEX Qty: 90 1RF Dose Instruction: TAKE ONE TABLET BY MOUTH EVERY DAY Rx Instructions: TAKE ONE TABLET BY MOUTH EVERY DAY clotrimazole 1 % cream 1 applic topical BID Qty: 45 0RF hydrochlorothiazide 25 mg tablet 25 mg PO DAILY Qty: 90 3RF atorvastatin 40 mg tablet See Rx Instructions .ROUTE .COMPLEX Qty: 90 1RF Dose Instruction: TAKE ONE TABLET BY MOUTH EVERY DAY Rx Instructions: TAKE ONE TABLET BY MOUTH EVERY DAY metoprolol succinate 25 mg tablet extended release 24 hr 25 mg PO DAILY Qty: 90 1RF famotidine 20 mg tablet See Rx Instructions .ROUTE .COMPLEX Qty: 90 3RF Dose Instruction: TAKE ONE TABLET BY MOUTH AT BEDTIME Rx Instructions: TAKE ONE TABLET BY MOUTH AT BEDTIME Discontinued pantoprazole 40 mg tablet,delayed release (DR/EC) 40 mg PO DAILY Qty: 90 0RF ASPIRIN 81 MG tablet 1 tab PO DAILY One Daily Complete 1 EACH tablet 1 tab PO DAILY Discharge Instructions Additional Instructions: Post EGD Instruction ?You had anesthesia for your EGD/stomach scope today.? For your safety, please do the following for the next twenty-four (24) hours: Do Not operate a motor vehicle (car, truck, motorcycle, etc.) Do Not drink alcoholic beverages or use any recreational drugs for the first 24 hours or while taking pain medications. The medications in your body may have a reaction that can be dangerous. Do Not make any important decisions or sign any important papers You have just had a gastroscopy (EGD) or upper GI tract examination. It is important for your smooth recovery that you carefully follow the recommendations below. Do not hesitate to call if any questions should arise about your anesthesia, condition, or care. -Symptoms you may experience during the next 24 hours: ?1. Mild abdominal pain or excessive gas or a bloated feeling which improves with rest, liquids, eating? slightly, and walking as tolerated. 2. Drowsiness and/or forgetfulness because of the medications you were given. 3. A sore throat which you can treat with throat lozenges or by gargling with salt water 4-5 times a day. 4. Redness at the site of your IV which you can treat with warm compresses. SPECIAL INSTRUCTIONS: 1. You may resume your previous diet in one hour. We recommend a light meal to start, then progress as tolerated. 2. Restart regular medications in one hour. 3. No aspirin or non-steroidal containing medication for 24 hrs. 4. No lifting over 20 pounds or strenuous activity for the first 24 hours after your procedure. After 24 hours there are no restrictions on your activity, but you may feel fatigued for a few days. -Findings: Mild gastritis and small hiatal hernia -Medications: Stop aspirin. Continue Pepcid stop Protonix and switch to Prevacid. Continue Zofran as needed for nausea -Speech consult. They will call to schedule an appointment to evaluate swallowing and see if there is any other mechanism that could be causing this problem -Ultrasound the gallbladder to evaluate for gallbladder problems. A HIDA scan may also be required. The hospital will call to schedule this appointment -Continue to follow lifestyle modifications: No alcohol, tobacco products, Aspirin or NSAID's (ibuprofen, Motrin, Naprosyn, aleve, etc).? Try to limit/avoid:? soda pop/any carbonated beverages, caffeine (including tea & chocolate), and acidic foods, (tomatoes, citrus, onions, peppermints) spicy or fried/fatty foods. Do not lie down for 30 minutes after eating, and do not eat 2 hours prior to bedtime. Avoid wearing tight fitting clothing/ belts. Follow up: -My office will send a letter with the results of your biopsy?s in 2-3wks time. Call the office at [phone] (Office) or [phone] (Hospital), or go to the ER right away if you notice any of the followin. Vomiting blood and /or ?coffee ground? material. ?2. Worsening of abdominal pain or cramping. ?3. Trouble with breathing, cough, and/or fever (temperature above 101.5 F). 4. Increasing pain with swallowing. ?5. Chest pain. 6. Any new symptoms. 7. Worsening of the redness at the IV site Stand Alone Forms: Anesthesia Discharge InstKirt Baumann (DSU) Activity:: see above Diet:: see above Discharge Orders Discharge Orders: Discharge Order (Routine); Ordered 02/11/24 Ordered By: Yoana Crystal Discharge Data Discharge Date/Time-TO BE ENTERED AT DEPARTURE: 02/12/24 10:19 DS: Diagnosis Discharge Diagnosis (1) Essential hypertension: Status: Acute (2) Coronary artery disease involving [place] coronary artery of [place] heart without angina pectoris: Status: Acute (3) Pacemaker: Status: Acute (4) Hyperlipidemia: Status: Acute (5) Diabetes mellitus: Status: Acute (6) Sensory hearing loss, bilateral: Status: Acute (7) Disorder of esophagus: Status: Acute Asessment and Plan: Patient is seen and examined after they are endoscopy.? Patient has minimal sore throat.? They have been able to tolerate liquids.? They do not have any nausea vomiting.? They are not having any chest pain or shortness of breath.? They have been able to pass gas and are not having any abdominal pain or distention.? They have not vomited any blood.? The vital signs have been stable-see nursing notes. We discussed findings on their endoscopy. We reviewed the importance of lifestyle modification-see discharge instructions We reviewed any new medications that the patient may be prescribed-see discharge instructions Patient will either be sent a letter with the biopsy results or follow-up in the office-see discharge instructions. Patient was given explicit instructions to follow-up regarding post endoscopy-re [place] to discharge Patient verbalized understanding and discharged in stable and satisfactory condition.? See nursing notes. (8) Gastroesophageal reflux disease: Status: Acute (9) Chronic nausea: Status: Acute (10) Spinal stenosis of lumbar region with radiculopathy: Status: Acute (11) Dyspnea: Status: Acute
[2024-02-12 07:14] VITALS: BP 115/83; PULSE 70; RESP 16; TEMP 36.6; O2SAT 98
[2024-02-12] MEDS: Lactated Ringers 1,000 ML 80 ML IV (07:44)
--- NOTE | 2024-02-12 08:06 | ANES.PREOP_ITS ---
General Info Date of Service Date Performed: 02/12/24 Height: 5 ft 8 in Weight: 69.5 kg Body Mass Index (BMI): 23.3 Surgical Procedure: Operation Date: 02/12/24 08:05 Proposed Procedure Side Surgeon p Gastroscopy Yoana Crystal, DO Meds Allergies and Home Medications Allergies Allergy/AdvReac Type Severity Reaction Status Date / Time No Known Allergies Allergy Verified 02/12/24 07:23 Home Medication ?Medication ?Instructions ?Recorded Aspirin 1 tab PO DAILY 05/13/12 multivitamin with minerals (One 1 tab PO DAILY 05/13/12 Daily Complete tablet) acyclovir 400 mg tablet 400 mg PO Q4H PRN cold sores #5 09/18/19 tabs blood-glucose meter (Contour Next #1 ea 01/12/22 EZ Meter kit) lancets (Accu-Chek Softclix #200 ea 01/13/22 Lancets) blood sugar diagnostic (Accu-Chek 05/08/22 SmartView Test Strips) sertraline 50 mg tablet See Rx Instructions .Route 08/06/23 .COMPLEX #90 tabs clotrimazole 1 % topical cream 1 applic topical BID #45 grams 09/12/23 atorvastatin 40 mg tablet See Rx Instructions .Route 09/17/23 .COMPLEX #90 tabs hydrochlorothiazide 25 mg tablet 25 mg PO DAILY #90 tabs 09/17/23 metoprolol succinate 25 mg 25 mg PO DAILY #90 tabs 09/27/23 tablet,extended release 24 hr famotidine 20 mg tablet See Rx Instructions .Route 12/10/23 .COMPLEX #90 tabs ondansetron HCl 4 mg tablet 4 mg PO Q8H PRN nausea and 12/10/23 vomiting #60 tabs pantoprazole 40 mg tablet,delayed 40 mg PO DAILY #90 tabs 12/10/23 release metformin 500 mg tablet,extended 500 mg PO DAILY #90 tabs 01/04/24 release 24hr (osmotic) polyethylene glycol 3350 17 17 g PO BID PRN constipation #850 01/04/24 gram/dose oral powder (Miralax) grams Current Visit Medications: Current Medications Generic Name Dose Route Start Last Admin Trade Name Freq PRN Reason Stop Dose Admin Ringer's Solution 1,000 mls @ 80 mls/hr 02/12/24 07:00 02/12/24 07:44 IV 03/13/24 06:59 80 mls/hr INFUSION DANIA Administration IV Miscellaneous Supplies 1 each 02/12/24 06:00 Iv Access IV 02/12/24 23:59 DIRECTED DANIA Ondansetron HCl 4 mg 02/12/24 00:42 Ondansetron 4 Mg/2 Ml Vial IVP 03/13/24 00:41 Q4H PRN PRN Nausea / Vomiting Sodium Chloride 0 ml 02/12/24 06:00 Normal Saline Flush 10 Ml Syr IV 02/12/24 23:59 PRN PRN Sodium Chloride 0 ml 02/12/24 06:00 Normal Saline 10 Ml Vial IJ 02/12/24 23:59 DIRECTED PRN Sterile Water 0 ml 02/12/24 06:00 Water,Injection,Sterile 10 Ml Vial IJ 02/12/24 23:59 DIRECTED PRN PFSH Active Problems Active Problems: Problem Status Onset Code Dyspnea Acute R06.00 Chronic nausea Acute R11.0 Fatigue Acute R53.83 Primary open angle glaucoma (POAG) of left eye, mild stage Chronic H40.1121 Tick bite Acute W57.XXXA Actinic keratoses Acute L57.0 Osteoarthritis of left hip Acute M16.12 Spinal stenosis of lumbar region with radiculopathy Acute M48.061, M54.16 Primary open angle glaucoma (POAG) of right eye, mild stage Acute H40.1111 Nuclear age-related cataract, right eye Resolved H25.11 Trochanteric bursitis, left hip Acute M70.62 Pacemaker Acute Z95.0 Weakness Acute R53.1 Post-nasal drip Acute R09.82 Depressive disorder Acute 01/11/03 F32.9 Diverticulosis of colon without diverticulitis Acute K57.30 Status post rotator cuff repair Acute Z98.890 Sensory hearing loss, bilateral Acute 08/18/13 H90.3 Osteoarthritis Acute M19.90 Impotence of organic origin Acute N52.9 Hyperlipidemia Acute E78.5 Hearing loss Acute H91.90 Gastroesophageal reflux disease Acute 10/31/12 K21.9 Essential hypertension Acute 10/30/12 I10 Disorder of esophagus Acute K22.9 Diabetes mellitus Acute 04/30/15 E11.9 Coronary artery disease involving [place] coronary artery of [place] heart without angina pectoris Acute 03/17/16 I25.10 Medical History Medical History Polyp of colon Peptic reflux disease Family history of diabetes mellitus Concern about skin disease without diagnosis Spinal stenosis of lumbar region at multiple levels (08/18/14) Left hip pain Problem with sexual function Encounter for annual physical exam Foreign body (FB) in soft tissue Sliver base of right thumb - pressure treated wood, been there a couple of weeks, very tender Low back pain Bradycardia (10/24/16) Rate in 30's at night Acute diffuse otitis externa of right ear (12/04/16) Hypertension GERD (gastroesophageal reflux disease) Osteoarthritis Hyperlipidemia Hearing loss Lumbago History of Helicobacter pylori infection Surgical History Surgical History History of esophagogastroduodenoscopy Posterior subcapsular age-related cataract, right eye Nuclear age-related cataract, left eye Posterior subcapsular age-related cataract of left eye History of permanent cardiac pacemaker [facility] History of cataract surgery Hx of CABG 2017 throat surgery ? Ulcer in throat Rotator Cuff Repair (~01/2001) left EGD - MAC 02/09/14 Tobacco Smoking/Tobacco Use Status: Former Tobacco Use Passive smoking exposure: Yes Second hand exposure: Yes Alcohol Alcohol Intake: current Alcohol intake frequency: holidays/special occasions only Alcohol type: beer Substance Use Substance use: Never Substance use type: does not use Counseling provided: none Vital Signs and Lab Results Vital Signs Most Recent Vital Signs in EMR: Most Recent Vital Signs Temp Pulse Resp BP Pulse Ox 36.6 C 70 16 115/83 98 02/12/24 07:14 02/12/24 07:14 02/12/24 07:14 02/12/24 07:14 02/12/24 07:14 Point of Care Results Point of Care Results: Finger Stick Blood Glucose 160 02/12/24 07:31 Lab Results Blood Type / Crossmatch: No Data to Display Complete Blood Count: No Data to Display Complete Metabolic Panel: No Data to Display Liver Function Panel: No Data to Display Coagulation Panel: No Data to Display Cardiac Panel: No Data to Display Arterial Blood Gas: No Data to Display Venous Blood Gas: No Data to Display Pancreas Panel: No Data to Display Thyroid Panel: No Data to Display Infectious Disease: No Data to Display Blood Cultures: No Data to Display Toxicology Panel: No Data to Display Anesthesia Assessment and Plan Anesthesia History Personal History: No History of Anesthesia Complications Family History: No Family History of Anesthesia Complications Exercise Tolerance Exercise Tolerance: Metabolic Equivalents>4 Cardiac & Pulmonary Exam Cardiac Exam: Normal S1/S2 Heart Sounds Pulmonary Exam: Clear Bilateral Breath Sounds Implantable Cardiac Device Does patient have a Pacemaker or an ICD?: Yes Device [employer]:: [employer] Reason for Placement:: Bradycardia Date of Last Device Interrogation:: 12/29/23 Airway Exam Known Difficult Airway: No Mallampati Class: 4 Mouth Opening: Normal (> 3cm) Thyromental Distance: Greater than 3 cm Neck Range of Motion: Full ROM Neck Circumference: Normal Teeth Condition: Removable Dentures/Plates Upper and Edentulous ASA Classification ASA Score: ASA 3 Emergency Case?: No NPO Status NPO Status: NPO Clears >2 hours, Solids >8 hours Anesthesia Plan Resuscitation Status: Full Code Anesthesia Technique: General Anesthesia Airway Planned: Natural Airway Monitors Used: Standard Monitors Preoperative Comments:: 84 yo male for EGD. Sig PMHx: CAD (3v CABG 1996, denies chest pain), HTN (well controlled. metoprolol, HCTZ), GERD (pantoprazole), spinal stenosis, DM (last A1c 7.0. metformin), depression, former smoker, occ EtOH. EKG: pacer. Stress: nondiag EKG due to pacer. MPI with no ischemia or prior infarction. LVEF 52% ECHO: mild LVH, LVEF 65%. grade 1 diastolic dysfunction. aortic sclerosis without stenosis. mild AR. mild-mod MR, mild TR.
[2024-02-12 08:14] VITALS: BMI 23.3
--- NOTE | 2024-02-12 08:37 | STOM_PTH ---
PATIENT: Ranjit Montaño JR LOC: [facility] U#:[id number] AGE/SX: 84/M ROOM: RE02/12/[address]: Yoana Crystal : 1940 BED: DIS: 02/12/2024 SPEC #: [id number] RECD: 02/12/24 11:56 STATUS: SHILA RE #: [id number] TINA: 02/12/24 08:[address]: Yoana Crystal DEPT: Surgical Specimen RECD BY: Zahraa Mitchell ENTERED: 02/12/24 11:58 SP TYPE: STOMACH OTHR DR: Sumit Alcala, DEE Tissues: 1 - BIOPSY BOWEL 2 - BIOPSY BOWEL 3 - STOMACH BIOPSY 4 - STOMACH BIOPSY 5 - ESOPHAGUS BIOPSY 6 - ESOPHAGUS BIOPSY Procedures: GROSS AND MICRO LEVEL 4 Comments: [id number]
[2024-02-12 08:54] VITALS: BP 92/72; PULSE 68; RESP 14; TEMP 36.3; O2SAT 96
[2024-02-12 09:23] VITALS: BP 111/78; PULSE 63; RESP 18; TEMP 36.6; O2SAT 97
--- NOTE | 2024-02-12 09:26 | W.ANESPOSTOP ---
Postoperative Evaluation Date, Time and Location Date Performed: 02/12/24 Time Performed: 09:18 Patient Location: Day Surgery Unit Vital Signs Most Recent Imported Vital Signs: Most Recent Vital Signs Temp Pulse Resp BP Pulse Ox 36.6 C 63 18 111/78 97 02/12/24 09:23 02/12/24 09:23 02/12/24 09:23 02/12/24 09:23 02/12/24 09:23 Pain Score Most Recent Pain Score: Most Recent Pain Score Pain Level 0 02/12/24 09:23 Assessment Mental Status: Awake (Alert & Oriented to Patient Baseline) Airway and Respiratory Function: Patent airway with normal (patient baseline) respiratory exam Cardiovascular Function: Hemodynamically Stable Hydration Status: Adequately Hydrated Nausea & Vomiting: No Nausea or Vomiting Pain: Pt. Denies Any Pain Peripheral Nerve Block: Patient did not receive a nerve block
== END 2024-02-12 10:19 | disposition home or self-care (01) ==
LOC: SUR 06:55
PROVIDERS: PCP Nurse Practitioner Family; Visit Provider Surgery
PROC: 0DJ68ZZ Inspection of Stomach, Via Natural or Artificial Opening Endoscopic (ICD-10-PCS; CPT 43235; principal; 2024-02-12 08:00)
DX: K21.9 Gastro-esophageal reflux disease without esophagitis (principal); R11.0 Nausea; I25.10 Atherosclerotic heart disease of native coronary artery without angina pectoris; K29.00 Acute gastritis without bleeding; K22.89 Other specified disease of esophagus
CPT/HCPCS: 43239; 88305; J2704

== ENCOUNTER 2024-02-19 01:05 | Outpatient (CLI) | payer MEDICARE, SELFPAY ==
--- NOTE | 2024-02-19 06:45 | DI.US_ITS ---
Exam(s) US ABDOMEN EXAM: US ABDOMEN CLINICAL HISTORY: intractible nausea/wt loss,r63.4,r11.2 TECHNIQUE: Ultrasound abdomen performed using standard protocol. COMPARISON: MR MRI - LUMBAR SPINE WO CONTRAST from 01/03/2016 FINDINGS: ABDOMINAL AORTA AND IVC: Atherosclerotic calcification is seen of the abdominal aorta. There is a an echoic well demarcated area posterior to the aorta with blood flow. It appears to communicate with t he aorta. Possibility of a pseudoaneurysm should be considered. PANCREAS: There is overlying bowel obscuring pancreatic evaluation. LIVER: There is increased echogenicity of the liver consistent with fatty infiltration. Hepatopetal flow in the Portal Vein. No evidence of a hepatic mass. The liver measures 11.5cm long. GALLBLADDER:No evidence of cholelithiasis. No evidence of wall thickening. No pericholecystic fluid i dentified. BILIARY SYSTEM: Common bile duct measures < 7 mm. No intrahepatic biliary ductal dilation. GUERRA'S SIGN: Negative. KIDNEYS: Kidneys are symmetric in size. No evidence of renal calculi. No evidence of hydronephrosis. No renal mass or cyst identified. SPLEEN: Not enlarged. ASCITES: None seen. IMPRESSION: 1. Hepatic steatosis. 2. Outpouching suggested sonographically posterior to the abdominal aorta suspicious for pseudoaneury sm. CT scan of the abdomen and pelvis should be considered for further evaluation. 3. Findings were discussed with Dr. Crystal at 9:45 a.m. on 02/19/2024. Unexpected findings DATA REPOSITORY:
[2024-02-19 11:57] LABS: Anion Gap 5.4 mmol/L (3-11); BUN 22 mg/dL (7-18); CO2 31.6 mmol/L (21.0-32.0); CREATININE 1.2 mg/dL (0.70-1.30); Calcium 9.1 mg/dL (8.5-10.1); Chloride 104 mmol/L (98-107); Estimated GFR 60.38 (mL/min/1.73m2); Glucose 156 mg/dL (74-106); Potassium 3.5 mmol/L (3.5-5.1); Sodium 141 mmol/L (136-145)
[2024-02-19] MEDS: Normal Saline - Diluent 50 ML VIAL IJ (12:08)
[2024-02-19] MEDS: Omnipaque 350 MG/ML 500 ML BTL-Imaging package 100 ML IJ (12:11)
--- NOTE | 2024-02-19 12:19 | DI.CT_ITS ---
Exam(s) CT ABDOMEN PELVIS CTA EXAM: CT ABDOMEN PELVIS CTA CLINICAL HISTORY: poss aneurysm on US, I71.9, abnl wt loss, R63.4. TECHNIQUE: Imaging Protocol: Axial CT angiography was performed with multi-slice acquisition and m ulti-planar and/or 3D reconstructions. CONTRAST MATERIAL: Intravenous: Omnipaque 350 Contrast volume:100mL Oral: No COMPARISON: CT,NM,TMT NM MPI REST STRESS GRP from 01/24/2024 US US ABDOMEN from 02/19/2024 FINDINGS: ABDOMEN AND PELVIS: Abdomen: Celiac axis/mesenteric arteries: No evidence of occlusion or significant stenosis. Mild atherosclerot ic calcification of both the celiac axis and mesenteric artery origins. Renal Arteries: No evidence of occlusion or significant stenosis. Aorta: No evidence of occlusion or significant stenosis. No aneurysm or dissection. There is no evid ence of a dissection or pseudoaneurysm. No soft tissue mass is seen in the retroaortic region. Pelvis: Iliac Arteries: No evidence of occlusion or significant stenosis. Atherosclerotic calcification is p resent. Common Femoral Arteries: No evidence of occlusion or significant stenosis. Atherosclerotic calcifica tion is present. ABDOMEN: Lung bases: Coronary artery calcifications are present. There is a 5 mm nodule in the periphery of t he right lower lobe (series 24, image 4). There is a 7 mm nodule in the right middle lobe (series 24 , image 7). Liver: Normal density. No measurable mass. Portal, Superior Mesenteric, and Splenic Veins: Unremarkable. Gallbladder and Biliary Tract: Cholelithiasis. Pancreas: There is fatty replacement of the pancreas. No peripancreatic inflammatory changes are see n. Spleen: Normal. Adrenals: No masses seen. Kidneys: Normal size, contour and axis. No radiodense stones or obstructive uropathy. No masses seen. Bowel: There is diverticulosis of the colon without evidence of acute diverticulitis. There is no ev idence of bowel wall thickening or obstruction. There is no evidence of appendicitis. Peritoneal Cavity: No ascites, collection or mesenteric inflammatory response. No free air. Lymph Nodes: Within normal limits. Bones: Unremarkable. Soft Tissues: There is a small fat containing left inguinal hernia. There is a small fat containing umbilical hernia. PELVIS: Bladder: Symmetric distention, no gross wall thickening. Reproductive Organs: Unremarkable as visualized. Lymph Nodes: Within normal limits. Bones: Within normal limits. IMPRESSION: 1. No evidence of an abdominal aortic aneurysm, pseudoaneurysm or dissection. 2. Pulmonary nodules in the right lower and right middle lobe. The largest measures 7 mm. For solitary solid noncalcified nodules measuring 6???8 mm in patients at high risk, an initial follo w-up examination is recommended at 6???12 months and again at 18???24 months (grade 1B: strong recomm endation, moderate quality evidence). (Judd et al., 2017) Solitary noncalcified solid nodules measuring 6???8 mm in patients with low clinical risk are recomme nded to undergo initial follow-up at 6???12 months depending on size, morphology, and patient prefere nce (grade 1C: strong recommendation, low- or [id number] evidence). (Judd et al., 2017) 3. No acute abdominal or pelvic process. RADIATION DOSE DELIVERED: 536.63mGy.cm Total DLP DATA REPOSITORY: All CT scans at this facility are submitted to the National Radiology Data Registry (NRDR) Dose Index Registry (DIR) with the [employer] (ACR). RADIATION OPTIMIZATION: All CT scans at this facility use at least one of these dose optimization te chniques: automated exposure control; mA and/or kV adjustment per patient size (includes targeted exa ms where dose is matched to clinical indication); or iterative reconstruction.
== END 2024-02-19 01:25 ==
PROVIDERS: PCP Nurse Practitioner Family; Visit Provider Surgery
DX: R63.4 Abnormal weight loss (principal); I25.10 Atherosclerotic heart disease of native coronary artery without angina pectoris; E11.9 Type 2 diabetes mellitus without complications
CPT/HCPCS: 80048; 74174; 76700

== ENCOUNTER → 2024-02-28 14:20 | Outpatient (BNVA) | payer MEDICARE, SELFPAY | PROVIDERS: PCP Nurse Practitioner Family; Referring Provider Nurse Practitioner Family; Visit Provider Surgery | DX: R11.0 Nausea (principal); R63.4 Abnormal weight loss; E11.9 Type 2 diabetes mellitus without complications | CPT/HCPCS: 99214 ==

== ENCOUNTER → 2024-05-14 14:00 | Outpatient (BNVA) | payer MEDICARE, SELFPAY | PROVIDERS: PCP Nurse Practitioner Family; Referring Provider Nurse Practitioner Family; Visit Provider Internal Medicine Cardiovascular Disease | DX: I25.10 Atherosclerotic heart disease of native coronary artery without angina pectoris (principal); I10 Essential (primary) hypertension; Z95.0 Presence of cardiac pacemaker | CPT/HCPCS: 93280 ==

== ENCOUNTER 2024-07-04 09:07 | Outpatient (CLI) | payer MEDICARE, SELFPAY ==
--- NOTE | 2024-07-04 08:30 | DI.RAD_ITS ---
Exam(s) XR HIP RT COMPLETE AP PELVIS EXAM: XR HIP RT COMPLETE AP PELVIS CLINICAL HISTORY: RIGHT HIP PAIN. TECHNIQUE: 2D digital imaging was performed. Two views COMPARISON: CR XR HIP LT COMPLETE AP PELVIS from 12/15/2022 FINDINGS: BONES: No acute fracture is present. No bony destructive lesion is seen. JOINTS: No dislocation present. Hip joint spaces are maintained. There is mild bilateral acetabula r spurring. There is spurring at the inferior margin of the right humeral head. The SI joints and p ubic symphysis are unremarkable. SOFT TISSUE: Normal. Hip IMPRESSION: Mild degenerative changes of the hips, right greater than left. DATA REPOSITORY: RADIATION DOSE DELIVERED:
== END 2024-07-04 09:08 | disposition home or self-care (01) ==
LOC: DIORS 09:07
PROVIDERS: PCP Nurse Practitioner Family; Referring Provider Nurse Practitioner Family; Visit Provider Physician Assistant
DX: M25.551 Pain in right hip (principal)
CPT/HCPCS: 20610; J1010; 73502

== ENCOUNTER → 2024-09-08 08:52 | Outpatient (BNVA) | payer MEDICARE, SELFPAY | PROVIDERS: PCP Nurse Practitioner Family; Referring Provider Nurse Practitioner Family; Visit Provider Student in an Organized Health Care Education/Training Program | DX: M70.61 Trochanteric bursitis, right hip (principal); M70.62 Trochanteric bursitis, left hip; M76.891 Other specified enthesopathies of right lower limb, excluding foot; M76.892 Other specified enthesopathies of left lower limb, excluding foot | CPT/HCPCS: 99213 ==

== ENCOUNTER → 2024-11-10 08:50 | Outpatient (BNVA) | payer MEDICARE, SELFPAY | PROVIDERS: PCP Nurse Practitioner Family; Referring Provider Nurse Practitioner Family; Visit Provider Physician Assistant | DX: M16.11 Unilateral primary osteoarthritis, right hip (principal); M70.61 Trochanteric bursitis, right hip | CPT/HCPCS: 99213 ==

== ENCOUNTER 2024-12-17 09:46 | Outpatient (CLI) | payer MEDICARE, SELFPAY ==
[2024-12-17 12:45] LABS: Abs Immature Grans 0.01 10^3/uL (0.0-0.06); HCT 39.6 % (40.0-50.0); HGB 13.2 g/dL (13.5-17.5); Immature Grans % 0.2 %; MCH 28.7 pg (27.0-33.0); MCHC 33.3 % (32.0-36.0); MCV 86 fL (80-95); MPV 10.4 fL (8.0-11.0); Platelet Count 190 10^3/uL (130-400); RBC 4.60 10^6/uL (4.36-5.78); RDW 12.8 % (11.8-14.1); RDW-SD 39.8 fL; WBC 6.43 10^3/uL (4.4-10.8)
[2024-12-17 13:02] LABS: ALT 40 U/L (16-63); AST 18 U/L (15-37); Albumin 3.9 g/dL (3.4-5.0); Alkaline Phosphatase 106 U/L (46-116); Anion Gap 6.1 mmol/L (3-11); BUN 27 mg/dL (7-18); Bilirubin, Total 0.7 mg/dL (0.2-1.0); CO2 31.9 mmol/L (21.0-32.0); Calcium 9.1 mg/dL (8.5-10.1); Chloride 101 mmol/L (98-107); Cholesterol 133 mg/dL (<200); Glucose 240 mg/dL (74-106); HDL Cholesterol 34 mg/dL (>or=40); Potassium 4.1 mmol/L (3.5-5.1); Sodium 139 mmol/L (136-145); Total Protein 7.1 g/dL (6.4-8.2)
[2024-12-17 13:40] LABS: Lab Add On Test DONE
[2024-12-17 13:51] LABS: Iron 86 ug/dL (65-175)
== END 2024-12-17 09:47 | disposition home or self-care (01) ==
LOC: LOS 09:46
PROVIDERS: PCP Nurse Practitioner Family; Visit Provider Nurse Practitioner Family
DX: E78.5 Hyperlipidemia, unspecified (principal); D64.9 Anemia, unspecified; R53.83 Other fatigue
CPT/HCPCS: 36415; 80053; 80061; 83540; 85025

== ENCOUNTER → 2025-01-28 08:37 | Outpatient (BNVA) | payer MEDICARE, SELFPAY | PROVIDERS: PCP Nurse Practitioner Family; Referring Provider Nurse Practitioner Family; Visit Provider Student in an Organized Health Care Education/Training Program | DX: R00.1 Bradycardia, unspecified (principal); Z45.018 Encounter for adjustment and management of other part of cardiac pacemaker | CPT/HCPCS: 93280 ==